=== PATIENT | female | born 1935 | race Caucasian/White ===

== ENCOUNTER → 2016-11-21 | Outpatient (REF) | payer MEDICARE, OTHER ==
[2016-11-21 08:10] LABS: MEAN CORPUSCULAR HEMOGLOBIN 31.8 pg (27.0-33.0); MEAN CORPUSCULAR HGB CONC 33.7 g/dl (32.0-36.5); MEAN CORPUSCULAR VOLUME 94.1 fl (80.0-96.0); RED CELL DISTRIBUTION WIDTH 12.4 % (11.5-14.5); WHITE BLOOD COUNT 4.6 K/mm3 (4.0-10.0)
[2016-11-21 08:33] LABS: ANION GAP 7 MEQ/L (8-16); BLOOD UREA NITROGEN 14 MG/DL (7-18); CALCIUM LEVEL 8.9 MG/DL (8.8-10.2); CARBON DIOXIDE LEVEL 30 MEQ/L (21-32); CHLORIDE LEVEL 105 MEQ/L (98-107); CREATININE FOR GFR 0.65 MG/DL (0.55-1.02); GLOMERULAR FILTRATION RATE > 60.0 (>32); GLUCOSE, FASTING 96 MG/DL (83-110); POTASSIUM SERUM 4.3 MEQ/L (3.5-5.1); SODIUM LEVEL 142 MEQ/L (136-145)
--- NOTE | 2016-11-21 13:12 | ECGEPIP ---
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
== END | disposition home or self-care (01) ==
LOC: SKLAB6 13:00
PROVIDERS: ATTEND Internal Medicine
DX: I50.9 Heart failure, unspecified (principal); R60.9 Edema, unspecified

== ENCOUNTER → 2016-11-27 | Outpatient (REF) | payer MEDICARE, OTHER ==
[2016-11-27 09:19] LABS: GLOMERULAR FILTRATION RATE 56.5 (>32); POTASSIUM SERUM 3.1 MEQ/L (3.5-5.1)
== END ==
LOC: SKLAB6 07:00
PROVIDERS: ATTEND Internal Medicine
DX: E87.6 Hypokalemia (principal)

== ENCOUNTER → 2016-12-01 | Outpatient (REF) | payer MEDICARE, OTHER ==
[2016-12-01 09:03] LABS: ANION GAP 7 MEQ/L (8-16); BLOOD UREA NITROGEN 22 MG/DL (7-18); CALCIUM LEVEL 8.9 MG/DL (8.8-10.2); CARBON DIOXIDE LEVEL 33 MEQ/L (21-32); CHLORIDE LEVEL 100 MEQ/L (98-107); CREATININE FOR GFR 0.88 MG/DL (0.55-1.02); GLOMERULAR FILTRATION RATE > 60.0 (>32); GLUCOSE, FASTING 88 MG/DL (83-110); POTASSIUM SERUM 3.9 MEQ/L (3.5-5.1); SODIUM LEVEL 140 MEQ/L (136-145)
== END ==
LOC: SKLAB6 07:00
PROVIDERS: ATTEND Internal Medicine
DX: I50.9 Heart failure, unspecified (principal); E87.6 Hypokalemia

== ENCOUNTER → 2016-12-04 | Outpatient (REF) | payer MEDICARE, OTHER ==
[2016-12-04 08:34] LABS: ANION GAP 9 MEQ/L (8-16); BLOOD UREA NITROGEN 20 MG/DL (7-18); CALCIUM LEVEL 9.3 MG/DL (8.8-10.2); CARBON DIOXIDE LEVEL 31 MEQ/L (21-32); CHLORIDE LEVEL 100 MEQ/L (98-107); CREATININE FOR GFR 0.88 MG/DL (0.55-1.02); GLOMERULAR FILTRATION RATE > 60.0 (>32); GLUCOSE, FASTING 94 MG/DL (83-110); POTASSIUM SERUM 4.3 MEQ/L (3.5-5.1); SODIUM LEVEL 140 MEQ/L (136-145)
== END ==
LOC: SKLAB6 07:00
PROVIDERS: ATTEND Internal Medicine
DX: R79.89 Other specified abnormal findings of blood chemistry (principal)

== ENCOUNTER → 2016-12-11 | Outpatient (REF) | payer MEDICARE, OTHER ==
[2016-12-11 09:22] LABS: ANION GAP 6 MEQ/L (8-16); BLOOD UREA NITROGEN 15 MG/DL (7-18); CALCIUM LEVEL 8.9 MG/DL (8.8-10.2); CARBON DIOXIDE LEVEL 33 MEQ/L (21-32); CHLORIDE LEVEL 102 MEQ/L (98-107); CREATININE FOR GFR 0.89 MG/DL (0.55-1.02); GLOMERULAR FILTRATION RATE > 60.0 (>32); GLUCOSE, FASTING 97 MG/DL (83-110); POTASSIUM SERUM 3.9 MEQ/L (3.5-5.1); SODIUM LEVEL 141 MEQ/L (136-145)
== END ==
LOC: SKLAB6 07:00
PROVIDERS: ATTEND Internal Medicine
DX: Z79.899 Other long term (current) drug therapy (principal)

== ENCOUNTER → 2016-12-18 | Outpatient (REF) | payer MEDICARE, OTHER ==
[2016-12-18 09:59] LABS: ANION GAP 8 MEQ/L (8-16); BLOOD UREA NITROGEN 17 MG/DL (7-18); CALCIUM LEVEL 8.7 MG/DL (8.8-10.2); CARBON DIOXIDE LEVEL 33 MEQ/L (21-32); CHLORIDE LEVEL 101 MEQ/L (98-107); CREATININE FOR GFR 0.91 MG/DL (0.55-1.02); GLOMERULAR FILTRATION RATE > 60.0 (>32); GLUCOSE, FASTING 91 MG/DL (83-110); POTASSIUM SERUM 3.1 MEQ/L (3.5-5.1); SODIUM LEVEL 142 MEQ/L (136-145)
== END ==
LOC: SKLAB6 07:00
PROVIDERS: ATTEND Internal Medicine
DX: E83.51 Hypocalcemia (principal)

== ENCOUNTER → 2016-12-25 | Outpatient (REF) | payer MEDICARE, OTHER ==
[2016-12-25 10:11] LABS: CALCIUM LEVEL 8.9 MG/DL (8.8-10.2); CREATININE FOR GFR 0.99 MG/DL (0.55-1.02); GLOMERULAR FILTRATION RATE 57.2 (>32); POTASSIUM SERUM 3.4 MEQ/L (3.5-5.1)
== END ==
LOC: SKLAB6 07:00
PROVIDERS: ATTEND Internal Medicine
DX: Z79.899 Other long term (current) drug therapy (principal)

== ENCOUNTER → 2017-01-01 | Outpatient (REF) | payer MEDICARE, OTHER ==
[2017-01-01 10:11] LABS: ANION GAP 8 MEQ/L (8-16); BLOOD UREA NITROGEN 19 MG/DL (7-18); CALCIUM LEVEL 8.7 MG/DL (8.8-10.2); CARBON DIOXIDE LEVEL 32 MEQ/L (21-32); CHLORIDE LEVEL 101 MEQ/L (98-107); CREATININE FOR GFR 0.91 MG/DL (0.55-1.02); GLOMERULAR FILTRATION RATE > 60.0 (>32); GLUCOSE, FASTING 100 MG/DL (83-110); POTASSIUM SERUM 3.8 MEQ/L (3.5-5.1); SODIUM LEVEL 141 MEQ/L (136-145)
== END ==
LOC: SKLAB6 07:00
PROVIDERS: ATTEND Internal Medicine
DX: D72.89 Other specified disorders of white blood cells (principal)

== ENCOUNTER → 2017-01-08 | Outpatient (REF) | payer MEDICARE, OTHER ==
[2017-01-08 09:07] LABS: ANION GAP 6 MEQ/L (8-16); BLOOD UREA NITROGEN 13 MG/DL (7-18); CALCIUM LEVEL 8.6 MG/DL (8.8-10.2); CARBON DIOXIDE LEVEL 32 MEQ/L (21-32); CHLORIDE LEVEL 104 MEQ/L (98-107); CREATININE FOR GFR 0.86 MG/DL (0.55-1.02); GLOMERULAR FILTRATION RATE > 60.0 (>32); GLUCOSE, FASTING 112 MG/DL (83-110); POTASSIUM SERUM 3.6 MEQ/L (3.5-5.1); SODIUM LEVEL 142 MEQ/L (136-145)
== END ==
LOC: SKLAB6 07:00
PROVIDERS: ATTEND Internal Medicine
DX: E83.51 Hypocalcemia (principal)

== ENCOUNTER → 2017-01-15 | Outpatient (REF) | payer MEDICARE, OTHER ==
[2017-01-15 08:42] LABS: ANION GAP 6 MEQ/L (8-16); BLOOD UREA NITROGEN 15 MG/DL (7-18); CALCIUM LEVEL 8.8 MG/DL (8.8-10.2); CARBON DIOXIDE LEVEL 33 MEQ/L (21-32); CHLORIDE LEVEL 101 MEQ/L (98-107); CREATININE FOR GFR 0.94 MG/DL (0.55-1.02); GLOMERULAR FILTRATION RATE > 60.0 (>32); GLUCOSE, FASTING 95 MG/DL (83-110); POTASSIUM SERUM 4.2 MEQ/L (3.5-5.1); SODIUM LEVEL 140 MEQ/L (136-145)
== END ==
LOC: SKLAB6 07:00
PROVIDERS: ATTEND Internal Medicine
DX: Z00.00 Encounter for general adult medical examination without abnormal findings (principal)

== ENCOUNTER → 2017-01-29 | Outpatient (REF) | payer MEDICARE, OTHER ==
[2017-01-29 09:23] LABS: ANION GAP 8 MEQ/L (8-16); BLOOD UREA NITROGEN 16 MG/DL (7-18); CALCIUM LEVEL 8.9 MG/DL (8.8-10.2); CARBON DIOXIDE LEVEL 33 MEQ/L (21-32); CHLORIDE LEVEL 100 MEQ/L (98-107); CREATININE FOR GFR 0.82 MG/DL (0.55-1.02); GLOMERULAR FILTRATION RATE > 60.0 (>32); GLUCOSE, FASTING 99 MG/DL (83-110); POTASSIUM SERUM 3.7 MEQ/L (3.5-5.1); SODIUM LEVEL 141 MEQ/L (136-145)
== END ==
LOC: SKLAB6 07:00
PROVIDERS: ATTEND Internal Medicine
DX: I50.9 Heart failure, unspecified (principal)

== ENCOUNTER → 2017-02-05 | Outpatient (REF) | payer MEDICARE, OTHER ==
[2017-02-05 08:54] LABS: ANION GAP 9 MEQ/L (8-16); BLOOD UREA NITROGEN 16 MG/DL (7-18); CALCIUM LEVEL 8.8 MG/DL (8.8-10.2); CARBON DIOXIDE LEVEL 30 MEQ/L (21-32); CHLORIDE LEVEL 102 MEQ/L (98-107); CREATININE FOR GFR 0.91 MG/DL (0.55-1.02); GLOMERULAR FILTRATION RATE > 60.0 (>32); GLUCOSE, FASTING 99 MG/DL (83-110); POTASSIUM SERUM 3.5 MEQ/L (3.5-5.1); SODIUM LEVEL 141 MEQ/L (136-145)
== END ==
LOC: SKLAB6 07:00
PROVIDERS: ATTEND Internal Medicine
DX: Z00.00 Encounter for general adult medical examination without abnormal findings (principal)

== ENCOUNTER → 2017-02-12 | Outpatient (REF) | payer MEDICARE, OTHER ==
[2017-02-12 09:12] LABS: ANION GAP 10 MEQ/L (8-16); BLOOD UREA NITROGEN 17 MG/DL (7-18); CALCIUM LEVEL 8.5 MG/DL (8.8-10.2); CARBON DIOXIDE LEVEL 30 MEQ/L (21-32); CHLORIDE LEVEL 101 MEQ/L (98-107); CREATININE FOR GFR 0.83 MG/DL (0.55-1.02); GLOMERULAR FILTRATION RATE > 60.0 (>32); GLUCOSE, FASTING 83 MG/DL (83-110); POTASSIUM SERUM 3.9 MEQ/L (3.5-5.1); SODIUM LEVEL 141 MEQ/L (136-145)
== END ==
LOC: SKLAB6 07:00
PROVIDERS: ATTEND Internal Medicine
DX: E83.52 Hypercalcemia (principal)

== ENCOUNTER → 2017-02-19 | Outpatient (REF) | payer MEDICARE, OTHER ==
[2017-02-19 09:42] LABS: ANION GAP 7 MEQ/L (8-16); BLOOD UREA NITROGEN 16 MG/DL (7-18); CALCIUM LEVEL 8.6 MG/DL (8.8-10.2); CARBON DIOXIDE LEVEL 32 MEQ/L (21-32); CHLORIDE LEVEL 102 MEQ/L (98-107); CREATININE FOR GFR 0.83 MG/DL (0.55-1.02); GLOMERULAR FILTRATION RATE > 60.0 (>32); GLUCOSE, FASTING 79 MG/DL (83-110); POTASSIUM SERUM 3.7 MEQ/L (3.5-5.1); SODIUM LEVEL 141 MEQ/L (136-145)
== END ==
LOC: SKLAB6 07:00
PROVIDERS: ATTEND Internal Medicine
DX: I50.9 Heart failure, unspecified (principal)

== ENCOUNTER → 2017-02-26 | Outpatient (REF) | payer MEDICARE, OTHER ==
[2017-02-26 09:32] LABS: ANION GAP 7 MEQ/L (8-16); BLOOD UREA NITROGEN 20 MG/DL (7-18); CALCIUM LEVEL 9.2 MG/DL (8.8-10.2); CARBON DIOXIDE LEVEL 32 MEQ/L (21-32); CHLORIDE LEVEL 101 MEQ/L (98-107); CREATININE FOR GFR 0.92 MG/DL (0.55-1.02); GLOMERULAR FILTRATION RATE > 60.0 (>32); GLUCOSE, FASTING 82 MG/DL (83-110); POTASSIUM SERUM 3.5 MEQ/L (3.5-5.1); SODIUM LEVEL 140 MEQ/L (136-145)
== END ==
LOC: SKLAB6 07:00
PROVIDERS: ATTEND Internal Medicine
DX: Z00.00 Encounter for general adult medical examination without abnormal findings (principal)

== ENCOUNTER → 2017-03-19 | Outpatient (REF) | payer MEDICARE, OTHER ==
[2017-03-19 10:15] LABS: ANION GAP 9 MEQ/L (8-16); BLOOD UREA NITROGEN 16 MG/DL (7-18); CALCIUM LEVEL 8.5 MG/DL (8.8-10.2); CARBON DIOXIDE LEVEL 29 MEQ/L (21-32); CHLORIDE LEVEL 103 MEQ/L (98-107); CREATININE FOR GFR 0.85 MG/DL (0.55-1.02); GLOMERULAR FILTRATION RATE > 60.0 (>32); GLUCOSE, FASTING 105 MG/DL (83-110); POTASSIUM SERUM 3.6 MEQ/L (3.5-5.1); SODIUM LEVEL 141 MEQ/L (136-145)
== END ==
LOC: SKLAB6 08:00
PROVIDERS: ATTEND Internal Medicine
DX: Z00.00 Encounter for general adult medical examination without abnormal findings (principal)

== ENCOUNTER → 2017-04-23 | Outpatient (REF) | payer MEDICARE, OTHER, MEDICAID ==
[2017-04-23 11:08] LABS: ANION GAP 10 MEQ/L (8-16); BLOOD UREA NITROGEN 16 MG/DL (7-18); CALCIUM LEVEL 9.2 MG/DL (8.8-10.2); CARBON DIOXIDE LEVEL 27 MEQ/L (21-32); CHLORIDE LEVEL 102 MEQ/L (98-107); CREATININE FOR GFR 0.91 MG/DL (0.55-1.02); GLOMERULAR FILTRATION RATE > 60.0 (>32); GLUCOSE, FASTING 126 MG/DL (83-110); POTASSIUM SERUM 3.5 MEQ/L (3.5-5.1); SODIUM LEVEL 139 MEQ/L (136-145)
== END ==
LOC: SKLAB6 07:00
PROVIDERS: ATTEND Internal Medicine
DX: R73.01 Impaired fasting glucose (principal)

== ENCOUNTER → 2017-04-30 | Outpatient (REF) | payer MEDICARE, OTHER ==
[2017-04-30 09:02] LABS: ANION GAP 7 MEQ/L (8-16); BLOOD UREA NITROGEN 14 MG/DL (7-18); CALCIUM LEVEL 9.4 MG/DL (8.8-10.2); CARBON DIOXIDE LEVEL 31 MEQ/L (21-32); CHLORIDE LEVEL 101 MEQ/L (98-107); CREATININE FOR GFR 0.81 MG/DL (0.55-1.02); GLOMERULAR FILTRATION RATE > 60.0 (>32); GLUCOSE, FASTING 93 MG/DL (83-110); POTASSIUM SERUM 4.1 MEQ/L (3.5-5.1); SODIUM LEVEL 139 MEQ/L (136-145)
== END ==
LOC: SKLAB8 07:00
PROVIDERS: ATTEND Internal Medicine
DX: Z00.00 Encounter for general adult medical examination without abnormal findings (principal)

== ENCOUNTER → 2017-05-28 | Outpatient (REF) | payer MEDICARE, OTHER ==
[2017-05-28 09:29] LABS: ANION GAP 8 MEQ/L (8-16); BLOOD UREA NITROGEN 16 MG/DL (7-18); CALCIUM LEVEL 8.7 MG/DL (8.8-10.2); CARBON DIOXIDE LEVEL 31 MEQ/L (21-32); CHLORIDE LEVEL 105 MEQ/L (98-107); CREATININE FOR GFR 0.73 MG/DL (0.55-1.02); GLOMERULAR FILTRATION RATE > 60.0 (>32); GLUCOSE, FASTING 84 MG/DL (83-110); POTASSIUM SERUM 4.3 MEQ/L (3.5-5.1); SODIUM LEVEL 144 MEQ/L (136-145)
== END ==
LOC: SKLAB8 07:00
PROVIDERS: ATTEND Internal Medicine
DX: I50.9 Heart failure, unspecified (principal)

== ENCOUNTER → 2017-06-25 | Outpatient (REF) | payer MEDICARE, OTHER ==
[2017-06-25 10:13] LABS: CALCIUM LEVEL 8.6 MG/DL (8.8-10.2); GLOMERULAR FILTRATION RATE 56.5 (>32); POTASSIUM SERUM 3.6 MEQ/L (3.5-5.1)
== END ==
LOC: SKLAB2 09:15
PROVIDERS: ATTEND Internal Medicine
DX: I50.9 Heart failure, unspecified (principal)

== ENCOUNTER → 2017-07-20 | Outpatient (REF) | payer MEDICARE, OTHER ==
[2017-07-20 09:43] LABS: ANION GAP 8 MEQ/L (8-16); BLOOD UREA NITROGEN 13 MG/DL (7-18); CALCIUM LEVEL 8.7 MG/DL (8.8-10.2); CARBON DIOXIDE LEVEL 28 MEQ/L (21-32); CHLORIDE LEVEL 103 MEQ/L (98-107); CREATININE FOR GFR 0.88 MG/DL (0.55-1.02); GLOMERULAR FILTRATION RATE > 60.0 (>32); GLUCOSE, FASTING 137 MG/DL (83-110); POTASSIUM SERUM 4.1 MEQ/L (3.5-5.1); SODIUM LEVEL 139 MEQ/L (136-145)
== END ==
LOC: SKLAB2 07:30
PROVIDERS: ATTEND Internal Medicine
DX: I50.9 Heart failure, unspecified (principal)

== ENCOUNTER → 2017-08-24 | Outpatient (REF) | payer MEDICARE, OTHER ==
[2017-08-24 10:14] LABS: ANION GAP 7 MEQ/L (8-16); BLOOD UREA NITROGEN 18 MG/DL (7-18); CALCIUM LEVEL 9.5 MG/DL (8.8-10.2); CARBON DIOXIDE LEVEL 32 MEQ/L (21-32); CHLORIDE LEVEL 103 MEQ/L (98-107); CREATININE FOR GFR 0.93 MG/DL (0.55-1.02); GLOMERULAR FILTRATION RATE > 60.0 (>32); GLUCOSE, FASTING 94 MG/DL (83-110); POTASSIUM SERUM 3.6 MEQ/L (3.5-5.1); SODIUM LEVEL 142 MEQ/L (136-145)
== END ==
LOC: SKLAB2 07:30
PROVIDERS: ATTEND Internal Medicine
DX: I50.9 Heart failure, unspecified (principal)

== ENCOUNTER → 2017-11-20 | Outpatient (REF) | payer MEDICARE, OTHER ==
[2017-11-20 11:40] LABS: HEMATOCRIT 35.9 % (36.0-47.0); HEMOGLOBIN 12.2 g/dl (12.0-16.0); MEAN CORPUSCULAR HEMOGLOBIN 31.6 pg (27.0-33.0); PLATELET COUNT, AUTOMATED 214 10^3/uL (150-450); RED BLOOD COUNT 3.86 10^6/uL (4.00-5.40); RED CELL DISTRIBUTION WIDTH 12.5 % (11.5-14.5); WHITE BLOOD COUNT 5.2 10^3/uL (4.0-10.0)
[2017-11-20 12:04] LABS: ANION GAP 6 MEQ/L (8-16); BLOOD UREA NITROGEN 17 MG/DL (7-18); CALCIUM LEVEL 8.6 MG/DL (8.8-10.2); CARBON DIOXIDE LEVEL 34 MEQ/L (21-32); CHLORIDE LEVEL 99 MEQ/L (98-107); CREATININE FOR GFR 0.81 MG/DL (0.55-1.30); GLOMERULAR FILTRATION RATE > 60.0 (>32); GLUCOSE, FASTING 111 MG/DL (70-100); NT-PRO BNP 434 PG/ML (<450); POTASSIUM SERUM 3.7 MEQ/L (3.5-5.1); SODIUM LEVEL 139 MEQ/L (136-145)
== END ==
LOC: SKLAB2 10:32
DX: I50.9 Heart failure, unspecified (principal); L03.90 Cellulitis, unspecified
CPT/HCPCS: 80048

== ENCOUNTER → 2017-11-20 | Outpatient (CLI) | payer MEDICARE, OTHER | LOC: M RAD 12:43 | DX: M79.604 Pain in right leg (principal); R60.0 Localized edema; I50.9 Heart failure, unspecified; L03.90 Cellulitis, unspecified | CPT/HCPCS: 71046 ==

== ENCOUNTER → 2017-11-23 | Outpatient (REF) | payer MEDICARE, OTHER ==
[2017-11-23 09:58] LABS: ANION GAP 9 MEQ/L (8-16); BLOOD UREA NITROGEN 18 MG/DL (7-18); CALCIUM LEVEL 9.1 MG/DL (8.8-10.2); CARBON DIOXIDE LEVEL 32 MEQ/L (21-32); CHLORIDE LEVEL 99 MEQ/L (98-107); CREATININE FOR GFR 0.96 MG/DL (0.55-1.30); GLOMERULAR FILTRATION RATE 59.1 (>32); GLUCOSE, FASTING 100 MG/DL (70-100); POTASSIUM SERUM 3.1 MEQ/L (3.5-5.1); SODIUM LEVEL 140 MEQ/L (136-145)
== END ==
LOC: SKLAB2 08:00
DX: I50.9 Heart failure, unspecified (principal)
CPT/HCPCS: 36415

== ENCOUNTER → 2017-11-26 | Outpatient (REF) | payer MEDICARE, OTHER ==
[2017-11-26 23:09] LABS: INFLUENZA A AMPLIFICATION NEGATIVE (NEGATIVE); INFLUENZA B AMPLIFICATION NEGATIVE (NEGATIVE); RSV AMPLIFICATION NEGATIVE (NEGATIVE)
== END ==
LOC: SKLAB2 20:49
DX: R05 Cough (principal); R50.9 Fever, unspecified
CPT/HCPCS: 87631

== ENCOUNTER → 2017-11-27 | Outpatient (REF) | payer MEDICARE, OTHER ==
[2017-11-27 07:45] LABS: ANION GAP 4 MEQ/L (8-16); BLOOD UREA NITROGEN 21 MG/DL (7-18); CALCIUM LEVEL 8.9 MG/DL (8.8-10.2); CARBON DIOXIDE LEVEL 34 MEQ/L (21-32); CHLORIDE LEVEL 101 MEQ/L (98-107); CREATININE FOR GFR 0.94 MG/DL (0.55-1.30); GLOMERULAR FILTRATION RATE > 60.0 (>32); GLUCOSE, FASTING 86 MG/DL (70-100); POTASSIUM SERUM 4.5 MEQ/L (3.5-5.1); SODIUM LEVEL 139 MEQ/L (136-145)
== END ==
LOC: SKLAB2 07:00
DX: I50.9 Heart failure, unspecified (principal)
CPT/HCPCS: 36415

== ENCOUNTER → 2017-12-25 | Outpatient (REF) | payer MEDICARE, OTHER ==
[2017-12-25 13:02] LABS: ANION GAP 6 MEQ/L (8-16); BLOOD UREA NITROGEN 20 MG/DL (7-18); CALCIUM LEVEL 8.7 MG/DL (8.8-10.2); CARBON DIOXIDE LEVEL 33 MEQ/L (21-32); CHLORIDE LEVEL 102 MEQ/L (98-107); CREATININE FOR GFR 0.85 MG/DL (0.55-1.30); GLOMERULAR FILTRATION RATE > 60.0 (>32); GLUCOSE, FASTING 88 MG/DL (70-100); NT-PRO BNP 298 PG/ML (<450); POTASSIUM SERUM 4.1 MEQ/L (3.5-5.1); SODIUM LEVEL 141 MEQ/L (136-145)
== END ==
LOC: SKLAB2 11:37
DX: I50.9 Heart failure, unspecified (principal); R60.0 Localized edema
CPT/HCPCS: 80048

== ENCOUNTER → 2018-01-01 | Outpatient (REF) | payer MEDICARE, OTHER ==
[2018-01-01 09:14] LABS: ANION GAP 6 MEQ/L (8-16); BLOOD UREA NITROGEN 24 MG/DL (7-18); CALCIUM LEVEL 8.8 MG/DL (8.8-10.2); CARBON DIOXIDE LEVEL 34 MEQ/L (21-32); CHLORIDE LEVEL 100 MEQ/L (98-107); GLOMERULAR FILTRATION RATE 56.4 (>32); GLUCOSE, FASTING 88 MG/DL (70-100); POTASSIUM SERUM 4.1 MEQ/L (3.5-5.1); SODIUM LEVEL 140 MEQ/L (136-145)
== END ==
LOC: SKLAB2 09:27
DX: I50.9 Heart failure, unspecified (principal); R60.9 Edema, unspecified
CPT/HCPCS: 36415

== ENCOUNTER → 2018-02-15 | Outpatient (REF) | payer MEDICARE, OTHER ==
[2018-02-15 19:27] LABS: HEMATOCRIT 37.6 % (36.0-47.0); MEAN CORPUSCULAR HEMOGLOBIN 31.9 pg (27.0-33.0); MEAN CORPUSCULAR HGB CONC 34.6 g/dl (32.0-36.5); MEAN CORPUSCULAR VOLUME 92.4 fl (80.0-96.0); PLATELET COUNT, AUTOMATED 287 10^3/uL (150-450); RED BLOOD COUNT 4.07 10^6/uL (4.00-5.40); RED CELL DISTRIBUTION WIDTH 12.3 % (11.5-14.5); WHITE BLOOD COUNT 6.4 10^3/uL (4.0-10.0)
[2018-02-15 20:25] LABS: ERYTHROCYTE SEDIMENTATION RATE 64 mm/hr (0-30)
== END ==
LOC: SKLAB2 17:47
DX: L51.9 Erythema multiforme, unspecified (principal); M25.532 Pain in left wrist
CPT/HCPCS: 84550

== ENCOUNTER → 2018-02-22 | Outpatient (REF) | payer MEDICARE, OTHER ==
[2018-02-22 08:30] LABS: ANION GAP 5 MEQ/L (8-16); BLOOD UREA NITROGEN 24 MG/DL (7-18); CARBON DIOXIDE LEVEL 34 MEQ/L (21-32); CHLORIDE LEVEL 102 MEQ/L (98-107); CREATININE FOR GFR 0.95 MG/DL (0.55-1.30); GLOMERULAR FILTRATION RATE 59.8 (>32); GLUCOSE, FASTING 80 MG/DL (70-100); POTASSIUM SERUM 3.9 MEQ/L (3.5-5.1); SODIUM LEVEL 141 MEQ/L (136-145)
== END ==
LOC: SKLAB2 07:00
DX: I50.9 Heart failure, unspecified (principal)
CPT/HCPCS: 36415

== ENCOUNTER → 2018-05-24 | Outpatient (REF) | payer MEDICARE, OTHER ==
[2018-05-24 08:35] LABS: ANION GAP 7 MEQ/L (8-16); BLOOD UREA NITROGEN 25 MG/DL (7-18); CALCIUM LEVEL 8.8 MG/DL (8.8-10.2); CARBON DIOXIDE LEVEL 32 MEQ/L (21-32); CHLORIDE LEVEL 105 MEQ/L (98-107); CREATININE FOR GFR 0.97 MG/DL (0.55-1.30); GLOMERULAR FILTRATION RATE 58.4 (>32); GLUCOSE, FASTING 87 MG/DL (70-100); POTASSIUM SERUM 4.4 MEQ/L (3.5-5.1); SODIUM LEVEL 144 MEQ/L (136-145)
== END ==
LOC: SKLAB2 08:00
DX: I50.9 Heart failure, unspecified (principal)
CPT/HCPCS: 36415

== ENCOUNTER → 2018-08-23 | Outpatient (REF) | payer MEDICARE, OTHER ==
[2018-08-23 10:17] LABS: ANION GAP 10 MEQ/L (8-16); BLOOD UREA NITROGEN 22 MG/DL (7-18); CALCIUM LEVEL 8.8 MG/DL (8.8-10.2); CARBON DIOXIDE LEVEL 29 MEQ/L (21-32); CHLORIDE LEVEL 103 MEQ/L (98-107); GLOMERULAR FILTRATION RATE > 60.0 (>32); GLUCOSE, FASTING 104 MG/DL (70-100); SODIUM LEVEL 142 MEQ/L (136-145)
== END ==
LOC: SKLAB2 07:00
DX: I50.9 Heart failure, unspecified (principal)
CPT/HCPCS: 80048

== ENCOUNTER → 2018-11-22 | Outpatient (REF) | payer MEDICARE, OTHER ==
[2018-11-22 08:21] LABS: BLOOD UREA NITROGEN 22 MG/DL (7-18); CALCIUM LEVEL 8.8 MG/DL (8.8-10.2); CARBON DIOXIDE LEVEL 32 MEQ/L (21-32); CHLORIDE LEVEL 103 MEQ/L (98-107); CREATININE FOR GFR 0.91 MG/DL (0.55-1.30); GLOMERULAR FILTRATION RATE > 60.0 (>32); GLUCOSE, FASTING 91 MG/DL (70-100); POTASSIUM SERUM 4.3 MEQ/L (3.5-5.1); SODIUM LEVEL 140 MEQ/L (136-145)
== END ==
LOC: SKLAB2 07:00
PROVIDERS: ATTEND Internal Medicine
DX: I50.9 Heart failure, unspecified (principal)

== ENCOUNTER → 2019-02-21 | Outpatient (REF) | payer MEDICARE, OTHER ==
[2019-02-21 08:31] LABS: BLOOD UREA NITROGEN 17 MG/DL (7-18); CALCIUM LEVEL 8.4 MG/DL (8.8-10.2); CARBON DIOXIDE LEVEL 31 MEQ/L (21-32); CHLORIDE LEVEL 105 MEQ/L (98-107); CREATININE FOR GFR 0.91 MG/DL (0.55-1.30); GLOMERULAR FILTRATION RATE > 60.0 (>32); GLUCOSE, FASTING 83 MG/DL (70-100); POTASSIUM SERUM 4.5 MEQ/L (3.5-5.1); SODIUM LEVEL 141 MEQ/L (136-145); VALPROIC ACID (DEPAKOTE) 30.8 UG/ML (50.0-100.0)
== END ==
LOC: SKLAB2 07:00
PROVIDERS: ATTEND Internal Medicine
DX: I50.9 Heart failure, unspecified (principal)

== ENCOUNTER → 2019-05-23 | Outpatient (REF) | payer MEDICARE, OTHER ==
[2019-05-23 08:36] LABS: CALCIUM LEVEL 8.7 MG/DL (8.8-10.2); CREATININE FOR GFR 0.97 MG/DL (0.55-1.30); GLOMERULAR FILTRATION RATE 58.2 (>32); POTASSIUM SERUM 4.7 MEQ/L (3.5-5.1)
== END ==
LOC: SKLAB2 07:00
PROVIDERS: ATTEND Internal Medicine
DX: I50.9 Heart failure, unspecified (principal)

== ENCOUNTER → 2019-08-22 | Outpatient (REF) | payer MEDICARE, OTHER ==
[2019-08-22 09:03] LABS: CALCIUM LEVEL 9.3 MG/DL (8.8-10.2); CREATININE FOR GFR 0.97 MG/DL (0.55-1.30); GLOMERULAR FILTRATION RATE 58.1 (>32); POTASSIUM SERUM 4.8 MEQ/L (3.5-5.1)
== END ==
LOC: SKLAB2 07:00
PROVIDERS: ATTEND Internal Medicine
DX: I50.9 Heart failure, unspecified (principal)

== ENCOUNTER → 2019-11-13 | Outpatient (REF) ==
--- NOTE | 2019-11-13 12:08 | REP ---
Facial bone series, eight views: No orbital rim fractures are identified. No nasal bone fractures are identified. No mandible fracture is identified. The the patient is edentulous. The skull base and sella are unremarkable. Impression: No facial bone fracture is identified. If symptoms persist or worsen, consider facial bone CT. Electronically Signed by Stuart Gonzalez MD 11/13/2019 12:00 P
== END ==
LOC: M RAD 11:17
PROVIDERS: ATTEND Internal Medicine
DX: S09.93XA Unspecified injury of face, initial encounter (principal); X58.XXXA Exposure to other specified factors, initial encounter

== ENCOUNTER → 2019-11-21 | Outpatient (REF) | payer MEDICARE, OTHER ==
[2019-11-21 13:47] LABS: BLOOD UREA NITROGEN 16 MG/DL (7-18); CARBON DIOXIDE LEVEL 27 MEQ/L (21-32); CHLORIDE LEVEL 103 MEQ/L (98-107); CREATININE FOR GFR 0.89 MG/DL (0.55-1.30); GLOMERULAR FILTRATION RATE > 60.0 (>32); GLUCOSE, FASTING 85 MG/DL (70-100); POTASSIUM SERUM 4.6 MEQ/L (3.5-5.1); SODIUM LEVEL 139 MEQ/L (136-145)
== END ==
LOC: SKLAB2 12:32
PROVIDERS: ATTEND Internal Medicine
DX: I50.20 Unspecified systolic (congestive) heart failure (principal)

== ENCOUNTER → 2019-12-22 | Outpatient (REF) | payer MEDICARE, OTHER | LOC: SKLAB2 14:57 | PROVIDERS: ATTEND Internal Medicine | DX: J06.9 Acute upper respiratory infection, unspecified (principal) ==

== ENCOUNTER → 2019-12-29 | Outpatient (REF) | payer MEDICARE, OTHER | LOC: SKLAB2 20:43 | PROVIDERS: ATTEND Internal Medicine | DX: R50.9 Fever, unspecified (principal) ==

== ENCOUNTER → 2019-12-29 | Outpatient (REF) | payer MEDICARE, OTHER ==
[2019-12-29 09:48] LABS: HEMATOCRIT 34.4 % (36.0-47.0); HEMOGLOBIN 11.3 g/dl (12.0-15.5); MEAN CORPUSCULAR HEMOGLOBIN 32.5 pg (27.0-33.0); MEAN CORPUSCULAR HGB CONC 32.8 g/dl (32.0-36.5); MEAN CORPUSCULAR VOLUME 98.9 fl (80.0-96.0); PLATELET COUNT, AUTOMATED 285 10^3/uL (150-450); RED BLOOD COUNT 3.48 10^6/uL (4.00-5.40); WHITE BLOOD COUNT 6.4 10^3/uL (4.0-10.0)
[2019-12-29 10:23] LABS: CALCIUM LEVEL 9.3 MG/DL (8.8-10.2); CREATININE FOR GFR 1.02 MG/DL (0.55-1.30); GLOMERULAR FILTRATION RATE 54.8 (>32); POTASSIUM SERUM 4.1 MEQ/L (3.5-5.1)
== END ==
LOC: SKLAB2 08:50
PROVIDERS: ATTEND Nurse Practitioner Family
DX: J06.9 Acute upper respiratory infection, unspecified (principal); R50.9 Fever, unspecified
CPT/HCPCS: 36415; 80048; 85027; 87486; 87581; 87633; 87798; U0002

== ENCOUNTER → 2020-02-21 | Outpatient (REF) | LOC: SKLAB2 07:00 | PROVIDERS: ATTEND Internal Medicine | DX: Z03.818 Encounter for observation for suspected exposure to other biological agents ruled out (principal) ==

== ENCOUNTER → 2020-02-21 | Outpatient (REF) | payer MEDICARE, OTHER ==
[2020-02-21 09:24] LABS: BLOOD UREA NITROGEN 20 MG/DL (7-18); CALCIUM LEVEL 8.8 MG/DL (8.8-10.2); CARBON DIOXIDE LEVEL 31 MEQ/L (21-32); CHLORIDE LEVEL 104 MEQ/L (98-107); CREATININE FOR GFR 0.82 MG/DL (0.55-1.30); GLOMERULAR FILTRATION RATE > 60.0 (>32); GLUCOSE, FASTING 78 MG/DL (70-100); POTASSIUM SERUM 4.4 MEQ/L (3.5-5.1); SODIUM LEVEL 142 MEQ/L (136-145)
== END ==
LOC: SKLAB2 07:00
PROVIDERS: ATTEND Internal Medicine
DX: I50.9 Heart failure, unspecified (principal)

== ENCOUNTER → 2020-05-22 | Outpatient (REF) | payer MEDICARE, OTHER ==
[~2020-05-22] MED LIST: ACET1TAB55 PO; ACET500T15 PO; APAP325T4 PO; ASPE16CR TOP; BACT800T5 PO; BIOTLIQ9 MT; DULC10SU2 PR; ENEMENE PR; MAGN400O50 PO; METO1TAB32 PO; METO25TA4 PO; MOUKOT60 MT; POTA20TA6 PO; QUET1TAB7 PO; SENO8.6T10 PO; TORS20TA2 PO; TUMS500C PO
[2020-08-18 07:54] LABS: BLOOD UREA NITROGEN 18 MG/DL (7-18); CALCIUM LEVEL 8.7 MG/DL (8.8-10.2); CARBON DIOXIDE LEVEL 27 MEQ/L (21-32); CHLORIDE LEVEL 105 MEQ/L (98-107); CREATININE FOR GFR 0.87 MG/DL (0.55-1.30); GLOMERULAR FILTRATION RATE > 60.0 (>32); GLUCOSE, FASTING 82 MG/DL (70-100); SODIUM LEVEL 141 MEQ/L (136-145)
== END ==
LOC: SKLAB2 11:36
DX: I50.9 Heart failure, unspecified (principal)

== ENCOUNTER 2020-08-03 07:10 | Inpatient (IN) | payer MEDICARE, OTHER ==
[~2020-08-03] VITALS: Ht 162.6 cm; Wt 63.0 kg
[2020-08-03 08:05] LABS: BASO % 0.2 % (0.0-1.0); LYMPH # 0.7 10^3/uL (1.5-5.0); LYMPH % 14.2 % (24.0-44.0); MEAN CORPUSCULAR HGB CONC 33.3 g/dl (32.0-36.5); MONO # 1.4 10^3/uL (0.0-0.8); MONO % 27.1 % (0.0-5.0); NEUTROPHILS % 57.7 % (36.0-66.0); PLATELET COUNT, AUTOMATED 187 10^3/uL (150-450); RED BLOOD COUNT 3.55 10^6/uL (4.00-5.40); WHITE BLOOD COUNT 5.2 10^3/uL (4.0-10.0)
[2020-08-03] MEDS ORDERED: BIOTLIQ9 MT (08:07)
[2020-08-03] MEDS ORDERED: METO1TAB32 PO (08:07)
--- NOTE | 2020-08-03 08:31 | REPVR ---
PROCEDURE INFORMATION: Exam: XR Chest, 1 View Exam date and time: 08/03/2020 8:00 AM Age: 85 years old Clinical indication: Fever TECHNIQUE: Imaging protocol: XR of the chest Views: Frontal portable sitting upright view of the chest. COMPARISON: GA Chest, 2 view PA, Lat 11/20/2017 1:13 PM FINDINGS: Tubes, catheters and devices: EKG leads are present overlying the chest. Lungs: Moderate pulmonary hypoexpansion. The patient's chin obscures a portion of the right lung apex. Mild left basilar pulmonary subsegmental atelectasis. The lungs are otherwise peripherally clear bilaterally. The pulmonary vasculature is normal. Pleural space: No pleural effusion. No pneumothorax. Heart/Mediastinum: The heart is normal in size and contour. Mediastinum: Stable. Vasculature: Mild aortic arch atherosclerotic calcification without ectasia. Bones/joints: Stable. IMPRESSION: 1. Moderate pulmonary hypoexpansion. 2. Mild left basilar pulmonary subsegmental atelectasis. Electronically signed by: Christiano Evans On 08/03/2020 08:31:12 AM
[2020-08-03] MEDS ORDERED: METO25TA4 PO (08:33)
[2020-08-03] MEDS ORDERED: MOUKOT60 MT (08:33)
[2020-08-03] MEDS ORDERED: POTA20TA6 PO (08:33)
[2020-08-03] MEDS ORDERED: ENEMENE PR (08:33)
[2020-08-03] MEDS ORDERED: APAP325T4 PO (08:33)
[2020-08-03] MEDS ORDERED: ACET500T15 PO (08:33)
[2020-08-03] MEDS ORDERED: TORS20TA2 PO (08:33)
[2020-08-03] MEDS ORDERED: DULC10SU2 PR (08:33)
[2020-08-03] MEDS ORDERED: MAGN400O50 PO (08:33)
[2020-08-03] MEDS ORDERED: ASPE16CR TOP (08:33)
[2020-08-03] MEDS ORDERED: SENO8.6T10 PO (08:33)
[2020-08-03] MEDS ORDERED: TUMS500C PO (08:33)
[2020-08-03 08:43] LABS: ALBUMIN 3.1 GM/DL (3.2-5.2); BILIRUBIN,DIRECT 0.1 MG/DL (0.0-0.2); BILIRUBIN,TOTAL 0.4 MG/DL (0.2-1.0); CK-MB VALUE MASS 2.3 NG/ML (<3.6); MB/CK RELATIVE INDEX 0.13 (< OR =4); TOTAL PROTEIN 6.9 GM/DL (6.4-8.2); TROPONIN I 0.99 NG/ML (< 0.10)
[2020-08-03] MEDS ORDERED: HALOPERIDOL 5MG/ML VIAL (J1630 PER 1) IV ONE ×2 (09:15→13:00)
[2020-08-03] MEDS ORDERED: cefTRIAXone SOD 1 GM in D5W MINI-BAG PLUS 50 ML IV ONE (10:00)
[2020-08-03] MEDS ORDERED: LORazepam 2 MG/ML VIAL IV STA ×2 (10:06→13:06)
[2020-08-03] MEDS ORDERED: ISOVUE-370 76% 100ML VIAL As Ordered ONE (10:35)
--- NOTE | 2020-08-03 11:01 | REP ---
INDICATION: fever, r/o pe COMPARISON: None. TECHNIQUE: Axial contrast enhanced images from the thoracic inlet to the upper abdomen using pulmonary embolus technique with multiplanar re-formations. 75 ml Isovue 370 intravenous contrast material administered without complication. This CT examination was performed using the following dose reduction techniques: Automated exposure control, adjustment of mA and/or kv according to the patient's size, and use of iterative reconstruction technique. FINDINGS: Evaluation is somewhat limited due to significant respiratory motion artifact. The pulmonary vasculature appears grossly normal and without obvious pulmonary embolus. Thoracic aorta demonstrates atherosclerotic changes without aneurysm or dissection. Heart and pericardium are normal. The lung trevino demonstrate mild bibasilar atelectasis. No focal consolidation. No effusion. No pneumothorax. Tracheobronchial tree is patent. No significant adenopathy. Moderate to large hiatal hernia identified at the gastroesophageal junction. Osseous structures demonstrate age-related changes without acute abnormality. IMPRESSION: 1. No evidence for pulmonary embolus. 2. Mild bibasilar atelectasis. 3. Moderate to large hiatal hernia. <Electronically signed by Stuart Lomas > 08/03/20 [id number]
--- NOTE | 2020-08-03 11:06 | REP ---
INDICATION: fever, abdominal pain. COMPARISON: 02/03/2011 TECHNIQUE: Axial contrast-enhanced images from the lung bases to the pubic symphysis using 100 cc Isovue 370 intravenous contrast material. [address] CT examination was performed using the following dose reduction techniques: Automated exposure control, adjustment of mA and/or kv according to the patient's size, and the use of iterative reconstruction technique. FINDINGS: Liver, spleen, pancreas, gallbladder, bilateral adrenal glands and left kidney are normal. Right kidney includes 2 cm mass along the anterior mid/lower pole margin requiring further investigation to exclude neoplasm. The enteric system demonstrates moderate hiatal hernia and moderate diffuse fecal stasis. No bowel obstruction or obvious acute inflammatory process noted. Diverticulosis appreciated without acute diverticulitis. Patient is noted to be status post hysterectomy. The bladder is distended and demonstrates some element of prolapse without acute surrounding inflammatory change. No ascites. No free air. No adenopathy. Incidental circumaortic left renal veins noted. Atherosclerotic changes to the aorta and vasculature identified without aneurysm or dissection. Musculoskeletal structures demonstrate age-related osteopenia and degenerative changes without acute osseous abnormality noted. IMPRESSION: 1. 2 cm right renal mass suspected. Consider follow-up ultrasound. 2. Chronic appearing changes as noted above. 3. No obvious further acute abdominopelvic pathology appreciated. No ascites, focal inflammatory stranding, free air, or adenopathy. <Electronically signed by Stuart Lomas > 08/03/20 [id number]
[2020-08-03 12:26] LABS: CK-MB VALUE MASS 3.3 NG/ML (<3.6); MB/CK RELATIVE INDEX 0.18 (< OR =4); TROPONIN I 0.66 NG/ML (< 0.10)
[2020-08-03] MEDS ORDERED: ACETAMINOPHEN *IV* 1,000 MG in IV 1 EA IV ONE (13:15)
[2020-08-03] MEDS ORDERED: BISACODYL 10 MG SUPP PR PRN (13:45)
[2020-08-03] MEDS ORDERED: CALCIUM CARBONATE 500 MG CHEW U/D PO PRN (13:45)
[2020-08-03] MEDS ORDERED: LIDOCAINE 5% (LIDODERM) PATCH TD ONE (14:00)
[2020-08-03] MEDS ORDERED: SODIUM CHLORIDE 0.9% 1000ML IV SCH (14:00)
--- NOTE | 2020-08-03 15:49 | HPEPDOC ---
General Date of Admission Aug 03, 2020 at 13:22 Date of Service: Aug 03, 2020 Attending Physician: ARISTEO RINALDI DO Chief Complaint The patient is a 85-year-old female admitted with a reason for visit of Metabolic Encephalopathy. Source: Patient, Family History of Present Illness Mrs. Marroquin is an 85 year old female with dementia, diastolic CHF, HTN, and GERD who come from [facility] for altered mental status and fever who is found to have sepsis secondary to UTI. Daughter was present in the room during evaluation. While at [facility], she has been independent and has been able to ambulate. Daughter does not know how the patient was yesterday, but today while at [facility], she had a fever and was holding her lower abdomen reporting pain. She was then sent to the ED. She was agitated, and in the ED, she required haloperidol 1mg x2 and Lorazepam 1mg x1 to obtain CT angio chest and CT abd/pelvis. She does not have a Donnelly catheter, but they straight cath for UA which demonstrated pyuria, nitrites, and bacteria. 1GM of ceftriaxone was given and admission was called. When I saw the patient, the daughter was in the room holding patients hand and trying to keep her in bed. Mrs. Marroquin was agitated and complaining of low back pain and leg pain. She did report dysuria. Her chest pain had resolved (and troponins trended downwards). Denied dyspnea. She was shivering and felt cold, but daughter reported that she chronically feels cold and likes to sit next to heater. Daughter was unsure what patient was like yesterday as she cannot see her often, but says this is not her baseline. Home Medications Scheduled Acetaminophen (Acetaminophen) 500 Mg Tablet, 500 MG PO TID, (Reported) Metoprolol Tartrate (Metoprolol Tartrate) 25 Mg Tablet, 25 MG PO BID, (Reported) Non-Formulary Medication ([place] Solution) 60 Ml [place], 2 SPRAYS MT QID, (Reported) Potassium Chloride (Potassium Chloride) 20 Meq Tab.er.prt, 20 MEQ PO BID, (Reported) Sennosides/Docusate Sodium (Senokot-S Tablet) 1 Each Tablet, 1 TAB PO BID, (Reported) Torsemide (Torsemide) 20 Mg Tablet, 20 MG PO DAILY, (Reported) Scheduled PRN Acetaminophen (Acetaminophen) 325 Mg Tablet, 650 MG PO Q4H PRN for PAIN / FEVER, (Reported) Bisacodyl (Dulcolax) 10 Mg Supp.rect, 10 MG TX DAILY PRN for CONSTIPATION, (Reported) Calcium Carbonate (Tums) 200 Mg Tab.chew, 500 MG PO Q6H PRN for HEARTBURN, (Reported) Lidocaine HCl (Aspercreme) 4% Cream..g., 1 APLCT TOP BID PRN for NECK PAIN, (Reported) Magnesium Hydroxide (Milk of Magnesia) 400 Mg/5 Ml Oral.susp, 2,400 MG PO DAILY PRN for CONSTIPATION, (Reported) Sodium Phosphate,[place]-Dibasic (Enema) 133 Ml Enema, 1 ERAN TX DAILY PRN for CONS TIPATION, (Reported) Allergies Coded Allergies: No Known Allergies (Verified , 04/17/03) Past Medical History Medical History 1. Alzheimer's disease/Dementia 2. Diastolic congestive heart failure 3. HTN 4. GERD 5. Gout 6. Depression/Anxiety Surgical History 1. Hysterectomy 2. Bladder and rectal suspension 3. Carpal tunnel surgery of right wrist Family History Unable to obtain as she was agitated Social History * Smoker: other (Unable to obtain as she was agitated) Alcohol: other (Unable to obtain as she was agitated) Drugs: other (Unable to obtain as she was agitated) A-FIB/CHADSVASC A-FIB History Current/History of A-Fib/PAF?: No Review of Systems Constitutional: Reports: Chills, Fever Eyes: Denies: Redness ENT: Denies: Sore Throat Pulmonary: Denies: Dyspnea Cardiovascular: Reports: Chest Pain (resolved) Gastrointestinal: Reports: Abdominal Pain (Lower abdominal pain) Genitourinary: Reports: Dysuria Endocrine: Reports: Cold Intolerance Musculoskeletal: Reports: Back Pain Neurological: Reports: Confusion Physical Examination General Exam: Positive: Severe Distress; Negative: Cooperative Eye Exam: Negative: Sclera icteric ENT Exam: Positive: Atraumatic Neck Exam: Positive: Supple Chest Exam: Positive: Clear to auscultation; Negative: Wheezing Heart Exam: Positive: Tachycardic, Regular Rhythm Abdomen Exam: Positive: Normal bowel sounds Extremity Exam: Negative: Edema Neuro Exam: Positive: Other (Moving all limbs) Psych Exam: Negative: Mental status NL Vital Signs Vital Signs Date Time Temp Pulse Resp B/P (MAP) Pulse Ox O2 Delivery O2 Flow Rate FiO2 08/03/20 14:37 108 20 91 Room Air 08/03/20 13:04 100.5 08/03/20 11:45 135/60 (85) Laboratory Data Labs 24H Laboratory Tests 2 08/03/20 07:47: Immature Granulocyte % (Auto) 0.8, Neutrophils (%) (Auto) 57.7, Lymphocytes (%) (Auto) 14.2L, Monocytes (%) (Auto) 27.1H, Eosinophils (%) (Auto) 0.0, Basophils (%) (Auto) 0.2, Neutrophils # (Auto) 3.0, Lymphocytes # (Auto) 0.7L, Monocytes # (Auto) 1.4H, Eosinophils # (Auto) 0.0, Basophils # (Auto) 0.0, Nucleated Red Blood Cells % (auto) 0.0, Lactic Acid Level 0.7, Total Bilirubin 0.4, Direct Bilirubin 0.1, Aspartate Amino Transf (AST/SGOT) 65H, Alanine Aminotransferase (ALT/SGPT) 24, Alkaline Phosphatase 81, Total Creatine Kinase 1836H, Creatine Kinase MB 2.3, Creatine Kinase MB Relative Index 0.13, Troponin I 0.99H, Total P rotein 6.9, Albumin 3.1L, Albumin/Globulin Ratio 0.8L, Lipase 83 08/03/20 07:57: POC Glucose (Misc Panel) 106H, POC Sodium (Misc Panel) 136, POC Potassium (Misc Panel) 3.6, POC Chloride (Misc Panel) 102, POC Total CO2 (Misc Panel) 22.0L, POC Blood Urea Nitrogen (Misc Panel 21, POC Ionized Calcium (Misc Panel) 4.5, POC Creatinine (Misc Panel) 0.8, POC Hematocrit (Misc Panel) 34.0L 08/03/20 08:46: Urine Color YELLOW, Urine Appearance CLOUDYH, Urine pH 7.0, Urine Specific Bone Gap 1.013, Urine Protein 1+H, Urine Glucose (UA) NEGATIVE, Urine Ketones NEGATIVE, Urine Blood 2+H, Urine Nitrite POSITIVEH, Urine Bilirubin NEGATIVE, Urine Urobilinogen 0.2, Urine Leukocyte Esterase 3+H, Urine WBC (Auto) TNTCH, Urine RBC (Auto) 41H, Urine Hyaline Casts (Auto) 0, Urine Bacteria (Auto) 3+H, Urine Squamous Epithelial Cells 0, Urine Mucus (Auto) SMALL, Urine Sperm (Auto) 08/03/20 11:32: Total Creatine Kinase 1838H, Creatine Kinase MB 3.3, Creatine Kinase MB Relative Index 0.18, Troponin I 0.66#H CBC/BMP Laboratory Tests 08/03/20 07:47 Microbiology Microbiology 08/03/20 Urine Culture, Received Pending 08/03/20 Blood Culture, Received Pending 08/03/20 Blood Culture, Received Pending Assessment/Plan Mr. Marroquin is an 85 year old female with alzheimer's disease, diastolic CHF, and hypertension here with metabolic encephalopathy secondary to sepsis from UTI. On admission, she had spike a temperature of 100.5 with tachycardia and tachypnea meeting 3/4 SIRS criteria. She also has 3/3 qSOFA criteria with AMS, tachycardia, and tachypnea. She demonstrates end organ damage with AMS, elevations of CPK and troponin (which down trended after 6 hours). She is here with sepsis 2/2 UTI. Her antihypertensives and diuretics will be held and she will be given 30ml/kg fluid bolus (2L NS). She will continue with antibiotics. Pending results from blood cultures and urine cultures Plan / VTE VTE Prophylaxis Ordered?: Yes Plan Plan 1. Sepsis -Meets 3/4 SIRS criteria and 3/3 qSOFA criteria -Source from UTI -Hold antihypertensives and diuretics -She was given 2L NS (30mL/kg) fluid bolus and Ceftriaxone -Continue with fluids and antibiotics 2. UTI -Straight Cath (no Donnelly) -UA demonstrates nitrites, pyuria, and bacteria -Reports dysuria -Empirically on ceftriaxone 3. Metabolic encephalopathy -Patient agitated -Daughter reports AMS -Secondary to Sepsis/UTI -Reorientate and treat underlying cause -Will need sitter as she is constantly trying to get up/Fall risk 4. Chronic pain -Continue Lidocaine patch and PRN Tylenol 5. Diastolic CHF -Not in exacerbation -Holding diuretics at this time 6. Hypertension -As she is septic, holding antihypertensives/diuretics 7. DVT ppx -SCD and TEDs ARISTEO RINALDI DO Aug 03, 2020 15:49
--- NOTE | 2020-08-03 16:43 | REP ---
INDICATION: Right renal mass COMPARISON: None TECHNIQUE: Real time bethea scale ultrasound examination using curved array transducer. FINDINGS: Right kidney measures 8.9 x 4.8 x 3.7 cm and demonstrates cortical thinning and increased central sinus fat. A 2.2 cm mid/upper pole mass lesion cannot definitively be excluded. No hydronephrosis, nephrolithiasis, or cystic lesion. Left kidney measures 9.9 x 4.8 x 4.5 cm and demonstrates cortical thinning and increased central sinus fat without hydronephrosis, nephrolithiasis, cystic or renal mass lesion. Bladder is unremarkable. IMPRESSION: 1. Evidence for chronic medical renal disease. 2. Limited examination cannot exclude right renal mass. Differential diagnosis may include lobar nephronia. Clinical correlation is recommended. Consider follow-up outpatient MRI of the abdomen for further investigation if necessary. <Electronically signed by Stuart Lomas > 08/03/20 [id number]
[2020-08-03] MEDS: NS 1,000 ML IV SCH (18:24)
[2020-08-03 20:00] VITALS: BP 170/82
--- NOTE | 2020-08-03 20:32 | ECGEPIP ---
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
[2020-08-03] MEDS: SENOKOT S TAB PO SCH (20:57)
[2020-08-04] VITALS (7 sets, daily range): BP systolic 94–140; BP diastolic 46–82
[2020-08-04] MEDS: ACETAMINOPHEN TAB 650MG DOSE (2X325MG) PO PRN ×4 (00:27→23:24)
[2020-08-04] MEDS ORDERED: METOPROLOL TART 25 MG TABLET PO ONE (01:45)
[2020-08-04] MEDS ORDERED: **NOTE PATIENT COMMENT** MISC XX ONE (02:00)
[2020-08-04] MEDS: NS 1,000 ML IV SCH (05:30)
[2020-08-04 05:53] LABS: HEMATOCRIT 35.2 % (36.0-47.0); HEMOGLOBIN 11.8 g/dl (12.0-15.5); MEAN CORPUSCULAR HEMOGLOBIN 31.7 pg (27.0-33.0); MEAN CORPUSCULAR HGB CONC 33.5 g/dl (32.0-36.5); MEAN CORPUSCULAR VOLUME 94.6 fl (80.0-96.0); PLATELET COUNT, AUTOMATED 171 10^3/uL (150-450); RED BLOOD COUNT 3.72 10^6/uL (4.00-5.40); WHITE BLOOD COUNT 5.4 10^3/uL (4.0-10.0)
[2020-08-04 06:09] LABS: ALBUMIN 2.8 GM/DL (3.2-5.2); ALT/SGPT 27 U/L (12-78); BILIRUBIN,TOTAL 0.4 MG/DL (0.2-1.0); BLOOD UREA NITROGEN 14 MG/DL (7-18); CALCIUM LEVEL 8.4 MG/DL (8.8-10.2); CARBON DIOXIDE LEVEL 22 MEQ/L (21-32); CHLORIDE LEVEL 113 MEQ/L (98-107); CREATININE FOR GFR 0.84 MG/DL (0.55-1.30); GLOMERULAR FILTRATION RATE > 60.0 (>32); GLUCOSE, FASTING 100 MG/DL (70-100); POTASSIUM SERUM 3.3 MEQ/L (3.5-5.1); SODIUM LEVEL 142 MEQ/L (136-145)
[2020-08-04] MEDS: SENOKOT S TAB PO SCH ×3 (09:00→21:50)
[2020-08-04] MEDS: cefTRIAXone SOD 1 GM in D5W MINI-BAG PLUS 50 ML IV SCH (10:14)
[2020-08-04] MEDS: POTASSIUM CHLORIDE 10 MEQ SR TABLET PO ONE ×2 (19:15→21:50)
--- NOTE | 2020-08-04 19:21 | IPNPDOC ---
Subjective Date Seen The patient was seen on 08/04/20. Subjective Chief Complaint/HPI Mrs. Marroquin is an 85 year old female with dementia, diastolic CHF, HTN, and GERD who come from [facility] for altered mental status and fever who is found to have sepsis secondary to UTI. Today, she felt cold and was shivering. She had pulled her IV line so another line was placed. New line was placed. May need to do intermittent fluid bolus to protect line. Otherwise, she did not want to answer my other ROS questions Constitutional: Reports: Chills Objective Physical Examination General Exam: Positive: Severe Distress; Negative: Cooperative Eye Exam: Negative: Sclera icteric ENT Exam: Positive: Atraumatic Neck Exam: Positive: Supple Chest Exam: Positive: Clear to auscultation; Negative: Wheezing Heart Exam: Positive: Tachycardic, Regular Rhythm Abdomen Exam: Positive: Normal bowel sounds Extremity Exam: Negative: Edema Neuro Exam: Positive: Other (Moving all limbs) Psych Exam: Negative: Mental status NL Assessment /Plan Assessment Mr. Marroquin is an 85 year old female with alzheimer's disease, diastolic CHF, and hypertension here with metabolic encephalopathy secondary to sepsis from UTI. On admission, she had spike a temperature of 100.5 with tachycardia and tachypnea meeting 3/4 SIRS criteria. She also has 3/3 qSOFA criteria with AMS, tachycardia, and tachypnea. She demonstrates end organ damage with AMS, elevations of CPK and troponin (which down trended after 6 hours). Her antihypertensives and diuretics will be held and she will be given 30ml/kg fluid bolus (2L NS). She will continue with antibiotics. Pending results from blood cultures and urine cultures Plan/VTE VTE Prophylaxis Ordered?: Yes Plan 1. Sepsis -Meets 3/4 SIRS criteria and 3/3 qSOFA criteria -Source from UTI -Hold antihypertensives and diuretics -She was given 2L NS (30mL/kg) fluid bolus and Ceftriaxone -To protect IV line, may need to do intermittent fluid bolus 2. UTI -UA from straight Cath (no Donnelly) -UA demonstrates nitrites, pyuria, and bacteria -Reports dysuria -Empirically on ceftriaxone 3. Metabolic encephalopathy -Patient agitated -Daughter reports AMS -Secondary to Sepsis/UTI -Reorientate and treat underlying cause -Will need sitter as she is constantly trying to get up/Fall risk 4. Chronic pain -Continue Lidocaine patch and PRN Tylenol 5. Diastolic CHF -Not in exacerbation -Holding diuretics at this time 6. Hypertension -As she is septic, holding antihypertensives/diuretics 7. DVT ppx -SCD and TEDs VS, I&O, 24H, Fishbone Vital Signs/I&O Vital Signs Date Time Temp Pulse Resp B/P (MAP) Pulse Ox O2 Delivery O2 Flow Rate FiO2 08/04/20 16:00 98.8 95 20 140/60 (86) 96 Room Air I&O- Last 24 Hours up to 6 AM 08/04/20 06:00 Intake Total 1010 ml Output Total 0 ml Balance 1010 ml Laboratory Data 24H LABS Laboratory Tests 2 08/04/20 05:36: Nucleated Red Blood Cells % (auto) 0.0, Anion Gap 7L, Glomerular Filtration Rate > 60.0, Calcium Level 8.4L, Total Bilirubin 0.4, Aspartate Amino Transf (AST/SGOT) 63H, Alanine Aminotransferase (ALT/SGPT) 27, Alkaline Phosphatase 74, Total Protein 7.0, Albumin 2.8L, Albumin/Globulin Ratio 0.7L CBC/BMP Laboratory Tests 08/04/20 05:36 Microbiology Microbiology 08/03/20 Urine Culture, Received Pending 08/03/20 Blood Culture - Preliminary, Resulted No growth after 24 hours . All specim... 08/03/20 Blood Culture - Preliminary, Resulted No growth after 24 hours . All specim... ARISTEO RINALDI DO Aug 04, 2020 19:21
[2020-08-05] VITALS: BP 125/65
[2020-08-05] MEDS: KCL 10MEQ/100ML SWI (KRUN) 10 MEQ in IV 1 EA IV SCH ×2 (01:29→02:49)
[2020-08-05 04:00] VITALS: BP 131/62
[2020-08-05] MEDS: ACETAMINOPHEN TAB 650MG DOSE (2X325MG) PO PRN ×5 (06:27→22:38)
[2020-08-05 08:00] VITALS: BP 124/60
[2020-08-05 08:23] LABS: HEMOGLOBIN 11.2 g/dl (12.0-15.5); MEAN CORPUSCULAR HEMOGLOBIN 31.7 pg (27.0-33.0); MEAN CORPUSCULAR HGB CONC 33.9 g/dl (32.0-36.5); MEAN CORPUSCULAR VOLUME 93.5 fl (80.0-96.0); PLATELET COUNT, AUTOMATED 175 10^3/uL (150-450); RED BLOOD COUNT 3.53 10^6/uL (4.00-5.40); WHITE BLOOD COUNT 4.6 10^3/uL (4.0-10.0)
[2020-08-05 08:48] LABS: BLOOD UREA NITROGEN 14 MG/DL (7-18); CALCIUM LEVEL 8.1 MG/DL (8.8-10.2); CARBON DIOXIDE LEVEL 22 MEQ/L (21-32); CHLORIDE LEVEL 109 MEQ/L (98-107); CREATININE FOR GFR 0.83 MG/DL (0.55-1.30); GLOMERULAR FILTRATION RATE > 60.0 (>32); GLUCOSE, FASTING 119 MG/DL (70-100); POTASSIUM SERUM 3.6 MEQ/L (3.5-5.1); SODIUM LEVEL 137 MEQ/L (136-145)
[2020-08-05] MEDS: cefTRIAXone SOD 1 GM in D5W MINI-BAG PLUS 50 ML IV SCH (10:21)
[2020-08-05] MEDS: SENOKOT S TAB PO SCH ×2 (10:21→20:31)
[2020-08-05 12:00] VITALS: BP 140/60
--- NOTE | 2020-08-05 15:36 | ECGEPIP ---
[facility] Test Date: 2020-08-04 Pat Name: PANDA BRAVO Department: Room: N6322-31 Gender: Female Director Physical Therapy: HT : 1935 Requested By: GRETA EDDY Order Number: [id number] Reading MD: Kt Mon Measurements Intervals [place] Rate: 123 P: 60 HI: 151 QRS: -20 QRSD: 86 T: 50 QT: 338 QTc: 484 Interpretive Statements SINUS TACHYCARDIA WITH VENTRICULAR PREMATURE COMPLEX x1 MINIMAL ST DEPRESSION ABNORMAL RHYTHM ECG Electronically Signed on 08-05-2020 15:36:20 EDT by Kt Mon
[2020-08-05 16:00] VITALS: BP 127/62
[2020-08-05] MEDS ORDERED: QUEtiapine FUMARATE 25 MG TAB PO SCH (16:45)
[2020-08-05] MEDS ORDERED: QUEtiapine FUMARATE 25 MG TAB PO ONE (17:00)
[2020-08-05] MEDS ORDERED: LIDOCAINE 5% (LIDODERM) PATCH TD ONE (17:30)
--- NOTE | 2020-08-05 19:27 | IPNPDOC ---
Subjective Date Seen The patient was seen on 08/05/20. Subjective Chief Complaint/HPI Mrs. Marroquin is an 85 year old female with dementia, diastolic CHF, HTN, and GERD who come from [facility] for altered mental status and fever who is found to have sepsis secondary to UTI. This morning, she was very pleasant and mentally stronger. She denied chest pain or current abdominal pain. She has back pain and leg pain, but did not want pain medication. Denies dysuria at this time. Late afternoon, she started to become more confused. Pain was still bothering her and she wanted to get up. Giving her lidocaine patch, Tylenol, and an extra dose of Seroquel. Constitutional: Denies: Fever Cardiovascular: Denies: Chest Pain Gastrointestinal: Denies: Abdominal Pain Genitourinary: Denies: Dysuria Musculoskeletal: Reports: Back Pain, Leg Pain Objective Physical Examination General Exam: Positive: Mild Distress Eye Exam: Negative: Sclera icteric ENT Exam: Positive: Atraumatic Neck Exam: Positive: Supple Chest Exam: Positive: Clear to auscultation; Negative: Wheezing Heart Exam: Positive: Tachycardic, Regular Rhythm Abdomen Exam: Positive: Normal bowel sounds Extremity Exam: Negative: Edema Neuro Exam: Positive: Other (Moving all limbs) Psych Exam: Negative: Mental status NL Assessment /Plan Assessment Mr. Marroquin is an 85 year old female with alzheimer's disease, diastolic CHF, and hypertension here with metabolic encephalopathy secondary to sepsis from UTI. On admission, she had spike a temperature of 100.5 with tachycardia and tachypnea meeting 3/4 SIRS criteria. She also has 3/3 qSOFA criteria with AMS, tachycardia, and tachypnea. She demonstrates end organ damage with AMS, elevations of CPK and troponin (which down trended after 6 hours). Today, she has not had chills. She was pleasant in the morning, but started to have acute delirium secondary to hospital psychosis vs pain. Will treat with pain control and Seroquel. Otherwise, urine cultures grew E.coli resistant to ampicillin and intermediate to Unasyn. Can consider Cefdinir on discharge for a total treatment of 7 days of antibiotics. Antibiotics started on 08/03/2020 Plan/VTE VTE Prophylaxis Ordered?: Yes Plan 1. Gram negative sepsis -Meets 3/4 SIRS criteria and 3/3 qSOFA criteria -Source from UTI -Hold antihypertensives and diuretics -She was given 2L NS (30mL/kg) fluid bolus and Ceftriaxone -To protect IV line, may need to do intermittent fluid bolus 2. E.coli UTI -UA from straight Cath (no Donnelly) -UA demonstrates nitrites, pyuria, and bacteria -Reports dysuria -Empirically on ceftriaxone -Can consider transitioning to Cefdinir on discharge with a 7 day total of antibiotics. Antibiotics started on 08/03/2020 3. Metabolic encephalopathy -Patient agitated -Daughter reports AMS -Secondary to Sepsis/UTI -Reorientate and treat underlying cause -Will need sitter as she is constantly trying to get up/Fall risk 4. Chronic pain -PRN Tylenol -Lidocaine patch 5. Diastolic CHF -Not in exacerbation -Holding diuretics at this time 6. Hypertension -As she is septic, holding antihypertensives/diuretics 7. Delirium -May be secondary to pain vs hospital psychosis ("sun downing") -Pain control with lidocaine patch and Tylenol -Seroquel for better sleep tonight 8. DVT ppx -SCD and TEDs Dispo: May be able to return to [facility] tomorrow VS, I&O, 24H, [facility] Vital Signs/I&O Vital Signs Date Time Temp Pulse Resp B/P (MAP) Pulse Ox O2 Delivery O2 Flow Rate FiO2 08/05/20 16:00 98.1 110 22 127/62 (83) 95 Room Air I&O- Last 24 Hours up to 6 AM 08/05/20 06:00 Intake Total 1920 ml Output Total 900 ml Balance 1020 ml Laboratory Data 24H LABS Laboratory Tests 2 08/05/20 08:08: Nucleated Red Blood Cells % (auto) 0.0, Anion Gap 6L, Glomerular Filtration Rate > 60.0, Calcium Level 8.1L CBC/BMP Laboratory Tests 08/05/20 08:08 Microbiology Microbiology 08/03/20 Urine Culture - Final, Complete Escherichia Coli 08/03/20 Blood Culture - Preliminary, Resulted No Growth after 48 hours. All Specime... 08/03/20 Blood Culture - Preliminary, Resulted No Growth after 48 hours. All Specime... ARISTEO RINALDI DO Aug 05, 2020 19:27
[2020-08-05 20:00] VITALS: BP 127/58
[2020-08-06] VITALS: BP 114/65
[2020-08-06] MEDS: ACETAMINOPHEN TAB 650MG DOSE (2X325MG) PO PRN ×2 (03:20→10:56)
[2020-08-06] MEDS ORDERED: **NOTE PATIENT COMMENT** MISC XX ONE (05:00)
[2020-08-06 05:32] LABS: HEMATOCRIT 33.1 % (36.0-47.0); HEMOGLOBIN 10.9 g/dl (12.0-15.5); MEAN CORPUSCULAR HEMOGLOBIN 30.5 pg (27.0-33.0); MEAN CORPUSCULAR HGB CONC 32.9 g/dl (32.0-36.5); MEAN CORPUSCULAR VOLUME 92.7 fl (80.0-96.0); PLATELET COUNT, AUTOMATED 187 10^3/uL (150-450); RED BLOOD COUNT 3.57 10^6/uL (4.00-5.40); WHITE BLOOD COUNT 4.2 10^3/uL (4.0-10.0)
[2020-08-06 06:05] LABS: BLOOD UREA NITROGEN 15 MG/DL (7-18); CALCIUM LEVEL 8.5 MG/DL (8.8-10.2); CARBON DIOXIDE LEVEL 20 MEQ/L (21-32); CHLORIDE LEVEL 111 MEQ/L (98-107); CREATININE FOR GFR 0.78 MG/DL (0.55-1.30); GLOMERULAR FILTRATION RATE > 60.0 (>32); GLUCOSE, FASTING 91 MG/DL (70-100); POTASSIUM SERUM 3.8 MEQ/L (3.5-5.1); SODIUM LEVEL 141 MEQ/L (136-145)
[2020-08-06] MEDS ORDERED: SENNA 8.6 MG TAB (SENOKOT) PO PRN (06:15)
[2020-08-06] MEDS ORDERED: QUEtiapine FUMARATE 12.5 MG HALF-TAB PO ONE (06:15)
[2020-08-06 08:00] VITALS: BP 144/66
[2020-08-06] MEDS: SENOKOT S TAB PO SCH (09:19)
[2020-08-06] MEDS ORDERED: QUET1TAB7 PO (10:03)
[2020-08-06] MEDS ORDERED: ACET1TAB55 PO (10:03)
[2020-08-06] MEDS ORDERED: BACT800T5 PO (10:03)
[2020-08-06] MEDS: cefTRIAXone SOD 1 GM in D5W MINI-BAG PLUS 50 ML IV SCH (10:56)
--- NOTE | 2020-08-06 22:41 | DS.PDOC ---
Discharge Summary General Date of Admission Aug 03, 2020 at 13:22 Date of Discharge Aug 06, 2020 Attending Physician: ARISTEO RINALDI DO Discharge Summary PROCEDURES PERFORMED DURING STAY: None ADMITTING DIAGNOSES: 1. Sepsis 2. UTI 3. Metabolic encephalopathy 4. Chronic pain 5. Diastolic CHF 6. Hypertension DISCHARGE DIAGNOSES: 1. Gram negative sepsis 2. E.coli UTI 3. Metabolic encephalopathy 4. Chronic pain 5. Diastolic CHF 6. Hypertension 7. Delirium COMPLICATIONS/CHIEF COMPLAINT: Metabolic Encephalopathy. HISTORY OF PRESENT ILLNESS: Mrs. Marroquin is an 85 year old female with dementia, diastolic CHF, HTN, and GERD who come from [facility] for altered mental status and fever who is found to have sepsis secondary to UTI. Daughter was present in the room during evaluation. While at [facility], she has been independent and has been able to ambulate. Daughter does not know how the patient was yesterday, but today while at [facility], she had a fever and was holding her lower abdomen reporting pain. She was then sent to the ED. She was agitated, and in the ED, she required haloperidol 1mg x2 and Lorazepam 1mg x1 to obtain CT angio chest and CT abd/pelvis. She does not have a Donnelly catheter, but they straight cath for UA which demonstrated pyuria, nitrites, and bacteria. 1GM of ceftr iaxone was given and admission was called. When I saw the patient, the daughter was in the room holding patients hand and trying to keep her in bed. Mrs. Marroquin was agitated and complaining of low back pain and leg pain. She did report dysuria. Her chest pain had resolved (and troponins trended downwards). Denied dyspnea. She was shivering and felt cold, but daughter reported that she chronically feels cold and likes to sit next to heater. Daughter was unsure what patient was like yesterday as she cannot see her often, but says this is not her baseline. HOSPITAL COURSE: The first day after admission, she continued to have chills. By the second day of admission, chills is resolved. She was sitting up in a chair, and initially was very pleasant. As the day progressed towards the late afternoon, she became more agitated. She had pain in her back and leg, but she did not want pain medication initially. On the day, gave her lidocaine patch and Tylenol for the pain. I also started her on Seroquel at nighttime, so that she could sleep at night and be awake in the daytime. Her urine culture grew Escherichia coli which was only resistant to ampicillin and intermediate to Unasyn. Started her on oral Bactrim DS for an additional 10 days for complicated UTI. Today she was discharged back to [facility]. DISCHARGE MEDICATIONS: Please see below. ALLERGIES: Please see below. PHYSICAL EXAMINATION ON DISCHARGE: VITAL SIGNS: Please see below. GENERAL: Elderly and frail, but in no apparent distress. HEENT: Head normocephalic/atraumatic, EOMI, sclera clear. NECK: Supple RESPIRATORY: Lungs clear to auscultation bilaterally, no rales, wheeze or rhonchi. CARDIOVASCULAR: Regular rate and rhythm. ABDOMEN: Soft, nontender, no guarding or rebound tenderness. Normal bowel sound s. MUSCLE SKELETAL: No pitting edema PSYCHOLOGICAL: Mood is variable LABORATORY DATA: Please see below. IMAGING: Chest x-ray 1. Moderate pulmonary hypoexpansion. 2. Mild left basilar pulmonary subsegmental atelectasis. CT angiogram of the chest 1. No evidence for pulmonary embolus. 2. Mild bibasilar atelectasis. 3. Moderate to large hiatal hernia. PROGNOSIS: Stable ACTIVITY: As tolerated. DIET: 2 g sodium DISCHARGE PLAN: [facility] DISPOSITION: [facility]. DISCHARGE INSTRUCTIONS: 1. Follow up with her provider within 5 days. DISCHARGE CONDITION: Stable. Total time spent on discharge planning, discharge summary, and medication reconc iliation: 35 minutes Vital Signs/I&Os Vital Signs Date Time Temp Pulse Resp B/P (MAP) Pulse Ox O2 Delivery O2 Flow Rate FiO2 08/06/20 08:00 97.6 92 20 144/66 (92) 99 Room Air I&O- Last 24 Hours up to 6 AM 08/06/20 06:00 Intake Total 120 ml Output Total 800 ml Balance -680 ml Laboratory Data Labs 24H Laboratory Tests 2 08/06/20 05:08: Nucleated Red Blood Cells % (auto) 0.0, Anion Gap 10, Glomerular Filtration Rate > 60.0, Calcium Level 8.5L 08/06/20 11:01: Coronavirus (COVID-19)(PCR) NEGATIVE CBC/BMP Laboratory Tests 08/06/20 05:08 Microbiology Microbiology 08/03/20 Urine Culture - Final, Complete Escherichia Coli 08/03/20 Blood Culture - Preliminary, Resulted No Growth after 72 hours. All specime... 08/03/20 Blood Culture - Preliminary, Resulted No Growth after 72 hours. All specime... Discharge Medications Scheduled Acetaminophen (Acetaminophen) 500 Mg Tablet, 500 MG PO TID, (Reported) Non-Formulary Medication (Mouthkote Solution) 60 Ml [place], 2 SPRAYS MT QID, (Reported) Quetiapine Fumarate (Quetiapine Fumarate) 25 Mg Tablet, 25 MG PO QHS Sennosides/Docusate Sodium (Senokot-S Tablet) 1 Each Tablet, 1 TAB PO BID, (Reported) Sulfamethoxazole/Trimethoprim (Bactrim Ds Tablet) 1 Each Tablet, 1 TAB PO BID Scheduled PRN Acetaminophen (Acetaminophen) 325 Mg Tablet, 650 MG PO Q6HP PRN for pain or fever Bisacodyl (Dulcolax) 10 Mg Supp.rect, 10 MG AK DAILY PRN for CONSTIPATION, (Reported) Calcium Carbonate (Tums) 200 Mg Tab.chew, 500 MG PO Q6H PRN for HEARTBURN, (Re ported) Lidocaine HCl (Aspercreme) 4% Cream..g., 1 APLCT TOP BID PRN for NECK PAIN, (Reported) Magnesium Hydroxide (Milk of Magnesia) 400 Mg/5 Ml Oral.susp, 2,400 MG PO DAILY PRN for CONSTIPATION, (Reported) Sodium Phosphate,Mercer-Dibasic (Enema) 133 Ml Enema, 1 ERAN AK DAILY PRN for CONSTIPATION, (Reported) Allergies Coded Allergies: No Known Allergies (Verified , 04/17/03) ARISTEO RINALDI DO Aug 06, 2020 22:41
== END 2020-08-06 12:35 | DRG 871 ==
LOC: EDBD 07:10 → M ED 07:10 → M ED INP 13:22 → ENRESERV 17:35 → M PCU 18:26
PROVIDERS: ADMIT Internal Medicine; ATTEND Internal Medicine
DX: A41.59 Other Gram-negative sepsis (principal); G93.41 Metabolic encephalopathy; N39.0 Urinary tract infection, site not specified; I50.32 Chronic diastolic (congestive) heart failure; I11.0 Hypertensive heart disease with heart failure; G30.9 Alzheimer's disease, unspecified; B96.29 Other Escherichia coli [E. coli] as the cause of diseases classified elsewhere; F02.80 Dementia in other diseases classified elsewhere, unspecified severity, without behavioral disturbance, psychotic disturbance, mood disturbance, and anxiety; K21.9 Gastro-esophageal reflux disease without esophagitis; Z79.899 Other long term (current) drug therapy; M10.9 Gout, unspecified; F41.9 Anxiety disorder, unspecified; F32.9 Major depressive disorder, single episode, unspecified; G89.29 Other chronic pain

== ENCOUNTER → 2020-08-08 | Outpatient (REF) | payer MEDICARE, OTHER ==
[2020-08-08 07:34] LABS: ALT/SGPT 34 U/L (12-78); BILIRUBIN,DIRECT < 0.1 MG/DL (0.0-0.2); BILIRUBIN,TOTAL 0.4 MG/DL (0.2-1.0); CPK CREATINE PHOSPHOKINASE 159 U/L (26-192); TOTAL PROTEIN 6.7 GM/DL (6.4-8.2)
== END ==
LOC: SKLAB2 03:41
PROVIDERS: ATTEND Internal Medicine
DX: I50.9 Heart failure, unspecified (principal)

== ENCOUNTER → 2020-08-08 | Outpatient (REF) | payer MEDICARE, OTHER | LOC: SKLAB2 12:19 | PROVIDERS: ATTEND Nurse Practitioner Family | DX: Z74.09 Other reduced mobility (principal) ==

== ENCOUNTER → 2020-08-09 | Outpatient (REF) | payer MEDICARE, OTHER ==
--- NOTE | 2020-08-09 14:09 | REP ---
INDICATION: PAIN / REFUSES HIP/PELVIS SERIES. COMPARISON: None. TECHNIQUE: Single AP portable view. FINDINGS: There is diffuse osteopenia. No fracture, subluxation, or bony destructive lesion is visible. IMPRESSION: Diffuse osteopenia. No fracture or other opaque foreign body. 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 <Electronically signed by Sixto Oswald > 08/09/20 [id number]
== END ==
LOC: SKLAB2 08:40
PROVIDERS: ATTEND Nurse Practitioner Family
DX: M85.88 Other specified disorders of bone density and structure, other site (principal); M16.11 Unilateral primary osteoarthritis, right hip; M25.551 Pain in right hip

== ENCOUNTER → 2020-08-21 | Outpatient (REF) | payer MEDICARE, OTHER ==
[2020-08-21 10:09] LABS: ALBUMIN 3.1 GM/DL (3.2-5.2); ALT/SGPT 19 U/L (12-78); BILIRUBIN,DIRECT < 0.1 MG/DL (0.0-0.2); BILIRUBIN,TOTAL 0.3 MG/DL (0.2-1.0); BLOOD UREA NITROGEN 16 MG/DL (7-18); CALCIUM LEVEL 9.1 MG/DL (8.8-10.2); CARBON DIOXIDE LEVEL 28 MEQ/L (21-32); CHLORIDE LEVEL 106 MEQ/L (98-107); CPK CREATINE PHOSPHOKINASE 49 U/L (26-192); CREATININE FOR GFR 0.77 MG/DL (0.55-1.30); GLOMERULAR FILTRATION RATE > 60.0 (>32); GLUCOSE, FASTING 114 MG/DL (70-100); POTASSIUM SERUM 4.3 MEQ/L (3.5-5.1); SODIUM LEVEL 140 MEQ/L (136-145); TOTAL PROTEIN 6.8 GM/DL (6.4-8.2)
== END ==
LOC: SKLAB2 08:30
DX: I50.9 Heart failure, unspecified (principal)

== ENCOUNTER → 2020-08-23 | Outpatient (REF) | payer MEDICARE, OTHER | LOC: SKLAB2 12:36 | DX: Z53.9 Procedure and treatment not carried out, unspecified reason (principal) ==

== ENCOUNTER → 2020-08-27 | Outpatient (REF) | payer MEDICARE, OTHER ==
[2020-08-27 13:34] LABS: BASO % 0.7 % (0.0-1.0); EOS # 0.1 10^3/uL (0.0-0.5); EOS % 2.7 % (0.0-3.0); HEMATOCRIT 32.6 % (36.0-47.0); LYMPH # 1.1 10^3/uL (1.5-5.0); LYMPH % 26.1 % (24.0-44.0); MEAN CORPUSCULAR HEMOGLOBIN 30.3 pg (27.0-33.0); MEAN CORPUSCULAR HGB CONC 30.7 g/dl (32.0-36.5); MEAN CORPUSCULAR VOLUME 98.8 fl (80.0-96.0); MONO % 24.1 % (0.0-5.0); NEUTROPHILS # 1.9 10^3/uL (1.5-8.5); NEUTROPHILS % 45.9 % (36.0-66.0); PLATELET COUNT, AUTOMATED 270 10^3/uL (150-450); WHITE BLOOD COUNT 4.1 10^3/uL (4.0-10.0)
== END ==
LOC: SKLAB2 10:08
DX: R74.9 Abnormal serum enzyme level, unspecified (principal)

== ENCOUNTER 2020-08-30 23:58 | Emergency (ER) | payer MEDICARE, OTHER ==
[2020-08-31 00:46] VITALS: BP 154/70
--- NOTE | 2020-08-31 00:56 | REPVR ---
PROCEDURE INFORMATION: Exam: CT Head Without Contrast Exam date and time: 08/31/2020 12:09 AM Age: 85 years old Clinical indication: Injury or trauma; Fall; Concussion/head injury; Consciousness not specified; Additional info: Fall and hit head on floor no thinners TECHNIQUE: Imaging protocol: Computed tomography of the head without contrast. Radiation optimization: All CT scans at this facility use at least one of these dose optimization techniques: automated exposure control; mA and/or kV adjustment per patient size (includes targeted exams where dose is matched to clinical indication); or iterative reconstruction. COMPARISON: No relevant prior studies available. FINDINGS: Brain: Severe anterior temporal lobe volume loss, correlate for Alzheimer's disease. No midline shift, mass, fluid collection, or evidence of acute hemorrhage. Cerebral ventricles: No ventriculomegaly. Bones/joints: Unremarkable. No acute fracture. Paranasal sinuses: Visualized sinuses are unremarkable. No fluid levels. Mastoid air cells: Visualized mastoid air cells are well aerated. Soft tissues: Right forehead hematoma. Right lateral scalp small hematoma. IMPRESSION: 1. No acute intracranial abnormality. 2. Right forehead hematoma. 3. Right lateral scalp small hematoma. Electronically signed by: Kt Fragoso On 08/31/2020 00:55:37 AM
--- NOTE | 2020-08-31 00:57 | REPVR ---
PROCEDURE INFORMATION: Exam: CT Cervical Spine Without Contrast Exam date and time: 08/31/2020 12:09 AM Age: 85 years old Clinical indication: Neck pain; Additional info: Fall and hit head on floor no thinners TECHNIQUE: Imaging protocol: Computed tomography images of the cervical spine without contrast. Radiation optimization: All CT scans at this facility use at least one of these dose optimization techniques: automated exposure control; mA and/or kV adjustment per patient size (includes targeted exams where dose is matched to clinical indication); or iterative reconstruction. COMPARISON: No relevant prior studies available. FINDINGS: Bones/joints: Maintained cervical vertebral body heights and lordosis with degenerative C4-T1 stepwise anterolisthesis. Discs/Spinal canal/Neural foramina: Multilevel moderate spinal and foraminal stenosis. Soft tissues: Unremarkable. Lungs: Scarring in the right lung apex. Vasculature: There is mild atherosclerotic calcification of the carotid arteries. There is mild atherosclerotic calcification of the carotid arteries. IMPRESSION: No acute findings. Electronically signed by: Kt Fragoso On 08/31/2020 00:57:12 AM
[2020-08-31] MEDS ORDERED: BOOSTRIX/ADACEL VACCINE (DIPHTH/PERTUSS/ACELL/TETANUS) 0.5ML SYR IM ONE (01:15)
[2020-08-31] MEDS ORDERED: DERMABOND TOPICAL SKIN ADHESIVE TOP ONE (01:15)
== END 2020-08-31 01:42 | disposition home or self-care (01) ==
LOC: M ED 23:58
DX: S01.81XA Laceration without foreign body of other part of head, initial encounter (principal); W19.XXXA Unspecified fall, initial encounter; Y92.129 Unspecified place in nursing home as the place of occurrence of the external cause; Y93.9 Activity, unspecified; Y99.9 Unspecified external cause status

== ENCOUNTER → 2020-09-12 | Outpatient (REF) | payer MEDICARE, OTHER | LOC: SKLAB2 08:00 | DX: Z20.828 Contact with and (suspected) exposure to other viral communicable diseases (principal) ==

== ENCOUNTER → 2020-09-19 | Outpatient (REF) | payer MEDICARE, OTHER | LOC: SKLAB2 07:31 | DX: Z20.828 Contact with and (suspected) exposure to other viral communicable diseases (principal) ==

== ENCOUNTER → 2020-09-25 | Outpatient (REF) | payer MEDICARE, OTHER ==
[2020-09-25 10:04] LABS: BASO % 0.6 % (0.0-1.0); EOS # 0.1 10^3/uL (0.0-0.5); EOS % 2.7 % (0.0-3.0); HEMATOCRIT 36.9 % (36.0-47.0); HEMOGLOBIN 11.8 g/dl (12.0-15.5); LYMPH # 1.2 10^3/uL (1.5-5.0); LYMPH % 36.4 % (24.0-44.0); MEAN CORPUSCULAR VOLUME 96.9 fl (80.0-96.0); MONO # 0.7 10^3/uL (0.0-0.8); MONO % 20.1 % (0.0-5.0); NEUTROPHILS # 1.4 10^3/uL (1.5-8.5); NEUTROPHILS % 39.9 % (36.0-66.0); PLATELET COUNT, AUTOMATED 228 10^3/uL (150-450); RED BLOOD COUNT 3.81 10^6/uL (4.00-5.40); WHITE BLOOD COUNT 3.4 10^3/uL (4.0-10.0)
[2020-09-25 10:40] LABS: ALBUMIN 3.4 GM/DL (3.2-5.2); ALT/SGPT 13 U/L (12-78); BILIRUBIN,DIRECT < 0.1 MG/DL (0.0-0.2); BILIRUBIN,TOTAL 0.3 MG/DL (0.2-1.0); CPK CREATINE PHOSPHOKINASE 62 U/L (26-192); FERRITIN 77 NG/ML (8-252); TOTAL PROTEIN 6.9 GM/DL (6.4-8.2)
[2020-09-25 11:47] LABS: FOLATE 11.5 NG/ML (>5.4); VITAMIN B12 LEVEL 470 PG/ML (247-911)
== END ==
LOC: SKLAB2 08:00
DX: D64.9 Anemia, unspecified (principal); F03.90 Unspecified dementia, unspecified severity, without behavioral disturbance, psychotic disturbance, mood disturbance, and anxiety

== ENCOUNTER → 2020-09-26 | Outpatient (REF) | payer MEDICARE, OTHER | LOC: SKLAB2 11:30 | DX: Z20.828 Contact with and (suspected) exposure to other viral communicable diseases (principal) ==

== ENCOUNTER → 2020-10-03 | Outpatient (REF) | payer MEDICARE, OTHER | LOC: SKLAB2 07:54 | DX: Z20.828 Contact with and (suspected) exposure to other viral communicable diseases (principal) ==

== ENCOUNTER → 2020-10-10 | Outpatient (REF) | payer MEDICARE, OTHER | LOC: SKLAB2 10:21 | DX: Z20.828 Contact with and (suspected) exposure to other viral communicable diseases (principal) ==

== ENCOUNTER → 2020-10-17 | Outpatient (REF) | payer MEDICARE, OTHER | LOC: SKLAB7 13:08 | PROVIDERS: ATTEND Internal Medicine | DX: Z11.52 Encounter for screening for COVID-19 (principal) ==

== ENCOUNTER → 2020-10-23 | Outpatient (REF) | payer MEDICARE, OTHER ==
[~2020-10-23] MED LIST changes: -QUET1TAB7 PO; +QUET25TA3 PO
[2020-10-23 09:32] LABS: BASO % 0.6 % (0.0-1.0); EOS # 0.1 10^3/uL (0.0-0.5); EOS % 1.9 % (0.0-3.0); HEMATOCRIT 37.9 % (36.0-47.0); LYMPH % 31.9 % (24.0-44.0); MEAN CORPUSCULAR HEMOGLOBIN 30.3 pg (27.0-33.0); MEAN CORPUSCULAR HGB CONC 31.7 g/dl (32.0-36.5); MEAN CORPUSCULAR VOLUME 95.7 fl (80.0-96.0); MONO # 0.6 10^3/uL (0.0-0.8); MONO % 19.4 % (0.0-5.0); NEUTROPHILS # 1.4 10^3/uL (1.5-8.5); NEUTROPHILS % 45.6 % (36.0-66.0); PLATELET COUNT, AUTOMATED 223 10^3/uL (150-450); RED BLOOD COUNT 3.96 10^6/uL (4.00-5.40); WHITE BLOOD COUNT 3.1 10^3/uL (4.0-10.0)
[2020-10-23 10:35] LABS: ALBUMIN 3.5 GM/DL (3.2-5.2); BILIRUBIN,DIRECT 0.1 MG/DL (0.0-0.2); BILIRUBIN,TOTAL 0.4 MG/DL (0.2-1.0); TOTAL PROTEIN 7.2 GM/DL (6.4-8.2)
== END ==
LOC: SKLAB7 07:00
DX: D64.9 Anemia, unspecified (principal); E05.90 Thyrotoxicosis, unspecified without thyrotoxic crisis or storm

== ENCOUNTER → 2020-10-24 | Outpatient (REF) | payer MEDICARE, OTHER ==
[~2020-10-24] MED LIST changes: +QUET1TAB7 PO; -QUET25TA3 PO
== END ==
LOC: SKLAB7 10:40
PROVIDERS: ATTEND Internal Medicine
DX: Z11.52 Encounter for screening for COVID-19 (principal)

== ENCOUNTER → 2020-10-31 | Outpatient (REF) | payer MEDICARE, OTHER ==
[~2020-10-31] MED LIST changes: -QUET1TAB7 PO; +QUET25TA3 PO
== END ==
LOC: SKLAB7 14:06
PROVIDERS: ATTEND Internal Medicine
DX: Z20.822 Contact with and (suspected) exposure to COVID-19 (principal)

== ENCOUNTER → 2020-11-07 | Outpatient (REF) | payer MEDICARE, OTHER | LOC: SKLAB7 09:57 | PROVIDERS: ATTEND Internal Medicine | DX: Z20.822 Contact with and (suspected) exposure to COVID-19 (principal) ==

== ENCOUNTER → 2020-11-14 | Outpatient (REF) | payer MEDICARE, OTHER ==
[~2020-11-14] MED LIST changes: +QUET1TAB7 PO; -QUET25TA3 PO
== END ==
LOC: SKLAB7 14:56
PROVIDERS: ATTEND Internal Medicine
DX: Z20.822 Contact with and (suspected) exposure to COVID-19 (principal)

== ENCOUNTER → 2020-11-21 | Outpatient (REF) | payer MEDICARE, OTHER ==
[~2020-11-21] MED LIST changes: -QUET1TAB7 PO; +QUET25TA3 PO
== END ==
LOC: SKLAB7 11:36
PROVIDERS: ATTEND Internal Medicine
DX: Z20.822 Contact with and (suspected) exposure to COVID-19 (principal)

== ENCOUNTER → 2020-11-28 | Outpatient (REF) | payer MEDICARE, OTHER | LOC: SKLAB7 07:11 | PROVIDERS: ATTEND Internal Medicine | DX: Z20.822 Contact with and (suspected) exposure to COVID-19 (principal) ==

== ENCOUNTER → 2020-12-05 | Outpatient (REF) | payer MEDICARE, OTHER | LOC: SKLAB7 14:19 | PROVIDERS: ATTEND Internal Medicine | DX: Z20.822 Contact with and (suspected) exposure to COVID-19 (principal) ==

== ENCOUNTER → 2020-12-19 | Outpatient (REF) | payer MEDICARE, OTHER | LOC: SKLAB7 10:07 | PROVIDERS: ATTEND Internal Medicine | DX: Z20.822 Contact with and (suspected) exposure to COVID-19 (principal) ==

== ENCOUNTER → 2020-12-26 | Outpatient (REF) | payer MEDICARE, OTHER | LOC: SKLAB7 12:24 | PROVIDERS: ATTEND Internal Medicine | DX: Z20.822 Contact with and (suspected) exposure to COVID-19 (principal) ==

== ENCOUNTER → 2021-01-11 | Outpatient (REF) | payer MEDICARE, OTHER | LOC: SKLAB7 07:00 | PROVIDERS: ATTEND Internal Medicine | DX: Z20.822 Contact with and (suspected) exposure to COVID-19 (principal) ==

== ENCOUNTER → 2021-03-27 | Outpatient (REF) | payer MEDICARE, OTHER ==
[2021-03-27 11:00] LABS: FREE T4 0.99 NG/DL (0.76-1.46); THYROID STIMULATING HORMONE 4.36 uIU/ML (0.358-3.740)
== END ==
LOC: SKLAB7 03-26 10:07
DX: R94.6 Abnormal results of thyroid function studies (principal)

== ENCOUNTER → 2021-04-11 | Outpatient (REF) | payer MEDICARE, OTHER ==
[2021-04-11 10:19] LABS: BLOOD UREA NITROGEN 20 MG/DL (7-18); CALCIUM LEVEL 9.2 MG/DL (8.8-10.2); CARBON DIOXIDE LEVEL 29 MEQ/L (21-32); CHLORIDE LEVEL 108 MEQ/L (98-107); CREATININE FOR GFR 0.68 MG/DL (0.55-1.30); GLOMERULAR FILTRATION RATE > 60.0 (>32); GLUCOSE, FASTING 78 MG/DL (70-100); POTASSIUM SERUM 4.1 MEQ/L (3.5-5.1); SODIUM LEVEL 143 MEQ/L (136-145)
== END ==
LOC: SKLAB7 07:00
DX: I50.9 Heart failure, unspecified (principal)

== ENCOUNTER → 2021-07-30 | Outpatient (REF) | payer MEDICARE, OTHER ==
[~2021-07-30] MED LIST changes: +QUET1TAB17 PO; -QUET25TA3 PO
== END ==
LOC: SKLAB7 11:15
PROVIDERS: ATTEND Internal Medicine
DX: Z20.822 Contact with and (suspected) exposure to COVID-19 (principal)

== ENCOUNTER → 2021-08-01 | Outpatient (REF) | payer MEDICARE, OTHER ==
[2021-08-01 12:46] LABS: BLOOD UREA NITROGEN 21 MG/DL (7-18); CALCIUM LEVEL 8.7 MG/DL (8.8-10.2); CARBON DIOXIDE LEVEL 28 MEQ/L (21-32); CHLORIDE LEVEL 105 MEQ/L (98-107); GLOMERULAR FILTRATION RATE > 60.0 (>32); GLUCOSE, FASTING 102 MG/DL (70-100); POTASSIUM SERUM 3.8 MEQ/L (3.5-5.1); SODIUM LEVEL 138 MEQ/L (136-145)
== END ==
LOC: SKLAB7 05:59
PROVIDERS: ATTEND Internal Medicine
DX: I50.9 Heart failure, unspecified (principal); Z20.822 Contact with and (suspected) exposure to COVID-19
CPT/HCPCS: 36415; 80048; U0002

== ENCOUNTER → 2021-08-05 | Outpatient (REF) | payer MEDICARE, OTHER | LOC: SKLAB7 09:00 | PROVIDERS: ATTEND Internal Medicine | DX: Z20.822 Contact with and (suspected) exposure to COVID-19 (principal) ==

== ENCOUNTER → 2021-08-08 | Outpatient (REF) | payer MEDICARE, OTHER | LOC: SKLAB7 07:22 | PROVIDERS: ATTEND Internal Medicine | DX: Z20.822 Contact with and (suspected) exposure to COVID-19 (principal) ==

== ENCOUNTER → 2021-08-12 | Outpatient (REF) | payer MEDICARE, OTHER | LOC: SKLAB7 08:08 | PROVIDERS: ATTEND Internal Medicine | DX: Z20.822 Contact with and (suspected) exposure to COVID-19 (principal) ==

== ENCOUNTER → 2021-08-15 | Outpatient (REF) | payer MEDICARE, OTHER | LOC: SKLAB7 05:59 | PROVIDERS: ATTEND Internal Medicine | DX: Z20.822 Contact with and (suspected) exposure to COVID-19 (principal) ==

== ENCOUNTER → 2021-08-21 | Outpatient (REF) | payer MEDICARE, OTHER | LOC: SKLAB7 05:26 | PROVIDERS: ATTEND Internal Medicine | DX: Z20.822 Contact with and (suspected) exposure to COVID-19 (principal) ==

== ENCOUNTER → 2021-08-28 | Outpatient (REF) | payer MEDICARE, OTHER | LOC: SKLAB7 10:40 | PROVIDERS: ATTEND Internal Medicine | DX: Z20.822 Contact with and (suspected) exposure to COVID-19 (principal) ==

== ENCOUNTER → 2021-09-18 | Outpatient (REF) | payer MEDICARE, OTHER | LOC: SKLAB7 13:53 | PROVIDERS: ATTEND Internal Medicine | DX: Z20.822 Contact with and (suspected) exposure to COVID-19 (principal) ==

== ENCOUNTER → 2021-09-25 | Outpatient (REF) | payer MEDICARE, OTHER | LOC: SKLAB7 14:51 | PROVIDERS: ATTEND Internal Medicine | DX: Z20.822 Contact with and (suspected) exposure to COVID-19 (principal) ==

== ENCOUNTER → 2021-10-02 | Outpatient (REF) | payer MEDICARE, OTHER | LOC: SKLAB7 07:00 | PROVIDERS: ATTEND Internal Medicine | DX: Z20.822 Contact with and (suspected) exposure to COVID-19 (principal) ==

== ENCOUNTER → 2021-10-09 | Outpatient (REF) | payer MEDICARE, OTHER | LOC: SKLAB7 06:56 | PROVIDERS: ATTEND Internal Medicine | DX: Z20.822 Contact with and (suspected) exposure to COVID-19 (principal) ==

== ENCOUNTER → 2021-10-16 | Outpatient (REF) | payer MEDICARE, OTHER | LOC: SKLAB7 09:32 | PROVIDERS: ATTEND Internal Medicine | DX: Z20.822 Contact with and (suspected) exposure to COVID-19 (principal) ==

== ENCOUNTER → 2021-10-29 | Outpatient (CLI) | payer MEDICARE, OTHER ==
[~2021-10-29] MED LIST changes: +POTA-151 PO; -POTA20TA6 PO
== END ==
LOC: M RAD 11:15
PROVIDERS: ATTEND Nurse Practitioner Family
DX: S80.11XA Contusion of right lower leg, initial encounter (principal); M79.604 Pain in right leg; X58.XXXA Exposure to other specified factors, initial encounter; Y92.9 Unspecified place or not applicable; Y93.9 Activity, unspecified; Y99.9 Unspecified external cause status

== ENCOUNTER → 2021-10-29 | Outpatient (REF) | payer MEDICARE, OTHER ==
[2021-10-29 13:07] LABS: HEMATOCRIT 39.1 % (36.0-47.0); HEMOGLOBIN 12.8 g/dl (12.0-15.5); MEAN CORPUSCULAR HEMOGLOBIN 31.9 pg (27.0-33.0); MEAN CORPUSCULAR HGB CONC 32.7 g/dl (32.0-36.5); MEAN CORPUSCULAR VOLUME 97.5 fl (80.0-96.0); PLATELET COUNT, AUTOMATED 242 10^3/uL (150-450); RED BLOOD COUNT 4.01 10^6/uL (4.00-5.40); WHITE BLOOD COUNT 5.4 10^3/uL (4.0-10.0)
[2021-10-29 13:17] LABS: PROTHROMBIN TIME 13.6 SECONDS (12.7-14.5)
[2021-10-29 13:18] LABS: PARTIAL THROMBOPLASTIN TIME 38.6 SECONDS (25.9-37.0)
[2021-10-29 13:41] LABS: BLOOD UREA NITROGEN 25 MG/DL (7-18); CALCIUM LEVEL 9.7 MG/DL (8.8-10.2); CARBON DIOXIDE LEVEL 30 MEQ/L (21-32); CHLORIDE LEVEL 103 MEQ/L (98-107); CREATININE FOR GFR 0.73 MG/DL (0.55-1.30); GLOMERULAR FILTRATION RATE > 60.0 (>32); GLUCOSE, FASTING 105 MG/DL (70-100); POTASSIUM SERUM 4.4 MEQ/L (3.5-5.1); SODIUM LEVEL 138 MEQ/L (136-145)
== END ==
LOC: SKLAB7 11:27
PROVIDERS: ATTEND Internal Medicine
DX: T14.8XXA Other injury of unspecified body region, initial encounter (principal); R52 Pain, unspecified; Z79.899 Other long term (current) drug therapy

== ENCOUNTER → 2021-11-06 | Outpatient (REF) | payer MEDICARE, OTHER | LOC: SKLAB7 12:52 | PROVIDERS: ATTEND Neuromusculoskeletal Medicine & OMM | DX: L03.90 Cellulitis, unspecified (principal); R60.9 Edema, unspecified ==

== ENCOUNTER 2021-11-08 16:02 | Inpatient (IN) | payer MEDICARE, OTHER ==
[2021-11-08 16:30] VITALS: BP 154/72
[2021-11-08] MEDS ORDERED: QUET1TAB17 PO (18:07)
[2021-11-08] MEDS ORDERED: ENSU1LIQ36 PO (18:07)
[2021-11-08] MEDS ORDERED: ASPI81TA26 PO (18:07)
[2021-11-08] MEDS ORDERED: METO25TA4 PO (18:07)
[2021-11-08] MEDS ORDERED: FURO20TA2 PO (18:07)
[2021-11-08] MEDS ORDERED: CEPH500T PO (18:07)
[2021-11-08] MEDS ORDERED: DOXY-350 PO (18:21)
== END 2021-11-08 20:40 | DRG 603 ==
LOC: M MSPAV 16:09
PROVIDERS: ADMIT Internal Medicine Nephrology; ATTEND Internal Medicine
DX: L03.115 Cellulitis of right lower limb (principal); F02.81 Dementia in other diseases classified elsewhere, unspecified severity, with behavioral disturbance; G30.9 Alzheimer's disease, unspecified; Z79.82 Long term (current) use of aspirin; Z79.899 Other long term (current) drug therapy

== ENCOUNTER 2021-11-08 20:42 | Outpatient (CLI) | payer MEDICARE, OTHER ==
[~2021-11-08] VITALS: Ht 162.6 cm; Wt 63.0 kg
[~2021-11-08 20:42] MED LIST changes: +ASPI81TA26 PO; +CEPH500T PO; +DALBAVANCIN 1,500 MG in D5W 250 ML IV ONE; +DOXY-350 PO; +ENSU1LIQ36 PO; +FURO20TA2 PO
[2021-11-08 20:58] VITALS: BP 176/84
== END 2021-11-08 21:22 ==
LOC: M OPCLI4PV 20:42 → M MSPAV 20:44 → M OPCLI4PV 21:22
PROVIDERS: ATTEND Emergency Medicine
DX: L03.90 Cellulitis, unspecified (principal)

== ENCOUNTER → 2021-11-14 | Outpatient (REF) | payer MEDICARE, OTHER ==
[~2021-11-14] MED LIST changes: -DALBAVANCIN 1,500 MG in D5W 250 ML IV ONE
[2021-11-14 11:31] LABS: BLOOD UREA NITROGEN 29 MG/DL (7-18); CARBON DIOXIDE LEVEL 27 MEQ/L (21-32); CHLORIDE LEVEL 106 MEQ/L (98-107); CREATININE FOR GFR 0.75 MG/DL (0.55-1.30); GLOMERULAR FILTRATION RATE > 60.0 (>32); GLUCOSE, FASTING 97 MG/DL (70-100); POTASSIUM SERUM 3.7 MEQ/L (3.5-5.1); SODIUM LEVEL 141 MEQ/L (136-145)
== END ==
LOC: SKLAB7 14:16
PROVIDERS: ATTEND Internal Medicine
DX: R60.9 Edema, unspecified (principal)

== ENCOUNTER → 2021-11-30 | Outpatient (REF) | LOC: SKLAB7 17:36 | PROVIDERS: ATTEND Internal Medicine | DX: R05.9 Cough, unspecified (principal); R09.81 Nasal congestion ==

== ENCOUNTER → 2022-02-12 | Outpatient (REF) | payer MEDICARE, OTHER ==
[2022-02-12 10:02] LABS: BLOOD UREA NITROGEN 21 MG/DL (7-18); CALCIUM LEVEL 9.6 MG/DL (8.8-10.2); CARBON DIOXIDE LEVEL 28 MEQ/L (21-32); CHLORIDE LEVEL 105 MEQ/L (98-107); CREATININE FOR GFR 0.68 MG/DL (0.55-1.30); GLOMERULAR FILTRATION RATE > 60.0 (>32); GLUCOSE, FASTING 102 MG/DL (70-100); SODIUM LEVEL 141 MEQ/L (136-145)
== END ==
LOC: SKLAB7 07:00
PROVIDERS: ATTEND Internal Medicine
DX: R60.9 Edema, unspecified (principal)

== ENCOUNTER → 2022-05-01 | Outpatient (REF) | payer MEDICARE, OTHER ==
[2022-05-01 10:02] LABS: BLOOD UREA NITROGEN 25 MG/DL (7-18); CARBON DIOXIDE LEVEL 29 MEQ/L (21-32); CHLORIDE LEVEL 106 MEQ/L (98-107); CREATININE FOR GFR 0.81 MG/DL (0.55-1.30); GLOMERULAR FILTRATION RATE > 60.0 (>32); GLUCOSE, FASTING 113 MG/DL (70-100); POTASSIUM SERUM 3.8 MEQ/L (3.5-5.1); SODIUM LEVEL 141 MEQ/L (136-145)
== END ==
LOC: SKLAB7 09:21
PROVIDERS: ATTEND Nurse Practitioner Family
DX: I50.9 Heart failure, unspecified (principal)

== ENCOUNTER → 2022-05-04 | Outpatient (CLI) | payer MEDICARE, OTHER | LOC: SKLAB7 03:50 | PROVIDERS: ATTEND Internal Medicine | DX: Z20.828 Contact with and (suspected) exposure to other viral communicable diseases (principal); Z11.59 Encounter for screening for other viral diseases ==

== ENCOUNTER → 2022-05-05 | Outpatient (REF) | payer MEDICARE, OTHER | LOC: SKLAB7 10:02 | PROVIDERS: ATTEND Nurse Practitioner Family | DX: Z20.822 Contact with and (suspected) exposure to COVID-19 (principal) ==

== ENCOUNTER → 2022-08-28 | Outpatient (REF) | payer MEDICARE, OTHER ==
[~2022-08-28] MED LIST changes: -DOXY-350 PO; +DOXY-444 PO; -MAGN400O50 PO; +SFHMOMUDC PO
[2022-08-28 10:42] LABS: BLOOD UREA NITROGEN 21 MG/DL (9-23); CALCIUM LEVEL 9.8 MG/DL (8.3-10.6); CARBON DIOXIDE LEVEL 28 MMOL/L (20-31); CHLORIDE LEVEL 104 MMOL/L (98-107); GLOMERULAR FILTRATION RATE > 60.0 (>32); GLUCOSE, FASTING 99 MG/DL (74-106); POTASSIUM SERUM 3.7 MMOL/L (3.5-5.1); SODIUM LEVEL 142 MMOL/L (136-145)
== END ==
LOC: SKLAB7 11:36
PROVIDERS: ATTEND Nurse Practitioner Family
DX: I50.9 Heart failure, unspecified (principal)

== ENCOUNTER → 2022-11-27 | Outpatient (REF) | payer MEDICARE, OTHER ==
[2022-11-27 10:47] LABS: BLOOD UREA NITROGEN 18 MG/DL (9-23); CALCIUM LEVEL 8.9 MG/DL (8.3-10.6); CARBON DIOXIDE LEVEL 26 MMOL/L (20-31); CHLORIDE LEVEL 104 MMOL/L (98-107); CREATININE FOR GFR 0.68 MG/DL (0.55-1.30); GLOMERULAR FILTRATION RATE > 60.0 (>32); GLUCOSE, FASTING 120 MG/DL (74-106); POTASSIUM SERUM 3.4 MMOL/L (3.5-5.1); SODIUM LEVEL 139 MMOL/L (136-145)
== END ==
LOC: SKLAB7 11:31
PROVIDERS: ATTEND Internal Medicine
DX: I50.9 Heart failure, unspecified (principal)

== ENCOUNTER → 2023-01-15 | Outpatient (REF) | payer MEDICARE, OTHER ==
[~2023-01-15] MED LIST changes: -ASPE16CR TOP; +LIDO76.52 TOP
[2023-01-15 13:50] LABS: APPEARANCE, URINE HAZY (CLEAR); BACTERIA, URINE AUTO 1+ (NEGATIVE); BILIRUBIN, URINE AUTO NEGATIVE (NEGATIVE); BLOOD, URINE BLOOD NEGATIVE (NEGATIVE); COLOR, URINE YELLOW (YELLOW); GLUCOSE, URINE (UA) AUTO NEGATIVE (NEGATIVE); KETONE, URINE AUTO NEGATIVE (NEGATIVE); LEUKOCYTE ESTERASE, URINE AUTO 3+ (NEGATIVE); MUCUS, URINE SMALL (NEGATIVE); NITRITE, URINE AUTO POSITIVE (NEGATIVE); PROTEIN, URINE AUTO NEGATIVE (NEGATIVE); RBC, URINE AUTO 3 /HPF (0-3); SPECIFIC GRAVITY URINE AUTO 1.009 (1.002-1.035); SQUAMOUS EPITHELIAL CELL UR AU 0 /HPF (0-6); UROBILINOGEN, URINE AUTO 0.2 mg/dL (0.0-2.0); WBC, URINE AUTO 30 /HPF (0-3)
== END ==
LOC: SKLAB7 13:08
PROVIDERS: ATTEND Internal Medicine
DX: R82.998 Other abnormal findings in urine (principal)

== ENCOUNTER → 2023-02-26 | Outpatient (REF) | payer MEDICARE, OTHER ==
[2023-02-26 09:21] LABS: BLOOD UREA NITROGEN 18 MG/DL (9-23); CALCIUM LEVEL 8.6 MG/DL (8.3-10.6); CARBON DIOXIDE LEVEL 27 MMOL/L (20-31); CHLORIDE LEVEL 106 MMOL/L (98-107); CREATININE FOR GFR 0.76 MG/DL (0.55-1.30); GLOMERULAR FILTRATION RATE > 60.0 (>32); GLUCOSE, FASTING 119 MG/DL (74-106); POTASSIUM SERUM 3.8 MMOL/L (3.5-5.1); SODIUM LEVEL 141 MMOL/L (136-145)
== END ==
LOC: SKLAB7 14:02
PROVIDERS: ATTEND Internal Medicine
DX: I50.9 Heart failure, unspecified (principal)

== ENCOUNTER → 2023-05-28 | Outpatient (REF) | payer MEDICARE, OTHER ==
[2023-05-28 07:21] LABS: BLOOD UREA NITROGEN 24 MG/DL (9-23); CALCIUM LEVEL 8.9 MG/DL (8.3-10.6); CARBON DIOXIDE LEVEL 25 MMOL/L (20-31); CHLORIDE LEVEL 108 MMOL/L (98-107); CREATININE FOR GFR 0.78 MG/DL (0.55-1.30); GLOMERULAR FILTRATION RATE > 60.0 (>32); GLUCOSE, FASTING 88 MG/DL (74-106); POTASSIUM SERUM 4.6 MMOL/L (3.5-5.1); SODIUM LEVEL 143 MMOL/L (136-145)
== END ==
LOC: SKLAB7 07:00
PROVIDERS: ATTEND Internal Medicine
DX: I50.9 Heart failure, unspecified (principal)

== ENCOUNTER 2023-07-25 12:04 | Inpatient (IN) | payer MEDICARE, OTHER, MEDICAID ==
[2023-07-25] VITALS (13 sets, daily range): BP systolic 106–163; BP diastolic 56–82; TEMP 98.1–98.8; O2SAT 94–99
[~2023-07-25] VITALS: Ht 162.6 cm; Wt 88.0 kg
[~2023-07-25 12:04] MED LIST changes: -ASPI81CH33 PO; -ATIV1TAB10 PO; -FERR32TA PO; -MIRT-10 PO
[2023-07-25] MEDS ORDERED: MED REC IN PROGRESS XX SCH (13:00)
[2023-07-25] MEDS ORDERED: ACET1TAB55 PO (13:23)
[2023-07-25] MEDS ORDERED: ATIV1TAB10 PO (13:23)
[2023-07-25] MEDS ORDERED: MIRT-10 PO (13:23)
[2023-07-25] MEDS ORDERED: ASPI81CH33 PO (13:23)
[2023-07-25 13:30] LABS: IRON (FE) 19 UG/DL (50-170); PERCENT SATURATION 4.9 % (13.2-45.0); TOTAL IRON BINDING CAPACITY 385 UG/DL (250-425)
[2023-07-25] MEDS ORDERED: HOME MED LIST COMPLETE! XX SCH (13:30)
[2023-07-25 13:32] LABS: FERRITIN 5.8 NG/ML (7.3-270.7)
[2023-07-25 13:33] LABS: FOLATE 11.83 NG/ML (>5.4); VITAMIN B12 LEVEL 475 PG/ML (211-911)
[2023-07-25] MEDS ORDERED: FUROSEMIDE 20MG/2ML VIAL IV ONE (15:00)
[2023-07-25] MEDS ORDERED: FUROSEMIDE 40MG/4ML VIAL IV ONE (15:30)
[2023-07-25 15:48] LABS: ALKALINE PHOSPHATASE 101 U/L (46-116); ALT/SGPT 29 U/L (7.0-40); AST/SGOT 33 U/L (<34); BILIRUBIN,DIRECT < 0.1 MG/DL (<0.4); BILIRUBIN,TOTAL 0.2 MG/DL (0.3-1.2); TOTAL PROTEIN 6.3 G/DL (5.7-8.2)
[2023-07-25] MEDS: ACETAMINOPHEN 500 MG TAB PO SCH ×2 (16:47→20:31)
[2023-07-25] MEDS: METOPROLOL TART 25 MG TABLET PO SCH (20:21)
[2023-07-25] MEDS: LORazepam 0.5 MG TAB PO SCH (20:30)
[2023-07-25] MEDS: QUEtiapine FUMARATE 25 MG TAB PO SCH (20:30)
[2023-07-25] MEDS: MIRTAZAPINE 15 MG TAB PO SCH (20:30)
[2023-07-25] MEDS: SENOKOT S TAB PO SCH (20:31)
[2023-07-25] MEDS ORDERED: MIRTAZAPINE 7.5MG PER 1/2 TABLET PO SCH (21:00)
[2023-07-25] MEDS ORDERED: QUEtiapine FUMARATE 12.5 MG HALF-TAB PO ONE (22:20)
[2023-07-26] VITALS (8 sets, daily range): BP systolic 96–139; BP diastolic 50–78; TEMP 97.5–98.6; O2SAT 92–99
[2023-07-26 00:20] LABS: HEMATOCRIT 21.7 % (36.0-47.0)
[2023-07-26 00:22] LABS: HEMOGLOBIN 6.9 g/dl (12.0-15.5)
[2023-07-26] MEDS ORDERED: FUROSEMIDE 40MG/4ML VIAL IV ONE (06:25)
[2023-07-26 06:35] LABS: HEMATOCRIT 28.2 % (36.0-47.0)
[2023-07-26 06:38] LABS: HEMOGLOBIN 9.1 g/dl (12.0-15.5)
[2023-07-26] MEDS ORDERED: FERRIC CARBOXYMALTOSE INJ 750 MG, VIAL MATE ADAPTER 1 EACH in NS 250 ML IV ONE (08:00)
[2023-07-26] MEDS: SENOKOT S TAB PO SCH ×2 (08:27→22:09)
[2023-07-26] MEDS: ACETAMINOPHEN 500 MG TAB PO SCH ×3 (08:27→22:09)
[2023-07-26] MEDS: METOPROLOL TART 25 MG TABLET PO SCH ×2 (08:27→22:08)
[2023-07-26] MEDS: LORazepam 0.5 MG TAB PO SCH ×2 (08:27→22:09)
[2023-07-26] MEDS: ASPIRIN 81MG CHEW TABLET PO SCH (08:27)
[2023-07-26 14:19] LABS: BASO % 0.3 % (0.0-1.0); EOS # 0.1 10^3/uL (0.0-0.5); HEMATOCRIT 26.9 % (36.0-47.0); HEMOGLOBIN 8.6 g/dl (12.0-15.5); LYMPH # 0.9 10^3/uL (1.5-5.0); LYMPH % 13.5 % (24.0-44.0); MEAN CORPUSCULAR HEMOGLOBIN 26.1 pg (27.0-33.0); MEAN CORPUSCULAR VOLUME 81.8 fl (80.0-96.0); MONO % 22.6 % (2.0-8.0); NEUTROPHILS # 4.2 10^3/uL (1.5-8.5); NEUTROPHILS % 60.6 % (36.0-66.0); PLATELET COUNT, AUTOMATED 313 10^3/uL (150-450); RED BLOOD COUNT 3.29 10^6/uL (4.00-5.40)
[2023-07-26] MEDS ORDERED: LORazepam 0.5 MG TAB PO ONE (14:30)
[2023-07-26 14:43] LABS: CALCIUM LEVEL 8.2 MG/DL (8.3-10.6); CREATININE FOR GFR 0.99 MG/DL (0.55-1.30); GLOMERULAR FILTRATION RATE 56.2 (>32); POTASSIUM SERUM 3.8 MMOL/L (3.5-5.1)
[2023-07-26 14:58] LABS: MONO # 1.6 10^3/uL (0.0-0.8)
[2023-07-26] MEDS: MIRTAZAPINE 15 MG TAB PO SCH (22:07)
[2023-07-26] MEDS: QUEtiapine FUMARATE 25 MG TAB PO SCH (22:09)
[2023-07-27] MEDS ORDERED: QUEtiapine FUMARATE 12.5 MG HALF-TAB PO ONE
[2023-07-27 06:08] LABS: BASO % 0.3 % (0.0-1.0); EOS # 0.2 10^3/uL (0.0-0.5); EOS % 2.4 % (0.0-3.0); HEMATOCRIT 26.1 % (36.0-47.0); HEMOGLOBIN 8.2 g/dl (12.0-15.5); MEAN CORPUSCULAR HGB CONC 31.4 g/dl (32.0-36.5); MEAN CORPUSCULAR VOLUME 82.9 fl (80.0-96.0); MONO % 32.5 % (2.0-8.0); NEUTROPHILS # 3.4 10^3/uL (1.5-8.5); NEUTROPHILS % 49.2 % (36.0-66.0); PLATELET COUNT, AUTOMATED 277 10^3/uL (150-450); RED BLOOD COUNT 3.15 10^6/uL (4.00-5.40)
[2023-07-27 06:18] LABS: BLOOD UREA NITROGEN 22 MG/DL (9-23); CARBON DIOXIDE LEVEL 23 MMOL/L (20-31); CHLORIDE LEVEL 106 MMOL/L (98-107); CREATININE FOR GFR 0.82 MG/DL (0.55-1.30); GLOMERULAR FILTRATION RATE > 60.0 (>32); GLUCOSE, FASTING 84 MG/DL (74-106); POTASSIUM SERUM 3.8 MMOL/L (3.5-5.1); SODIUM LEVEL 139 MMOL/L (136-145)
[2023-07-27] MEDS ORDERED: FERR32TA PO (06:36)
[2023-07-27 06:45] LABS: MONO # 2.3 10^3/uL (0.0-0.8)
[2023-07-27] MEDS ORDERED: FUROSEMIDE 40MG/4ML VIAL IV SCH (09:00)
[2023-07-27] MEDS ORDERED: FERROUS GLUCONATE 324 MG TAB PO SCH (09:00)
[2023-07-27] MEDS: ASPIRIN 81MG CHEW TABLET PO SCH (10:35)
[2023-07-27] MEDS: LORazepam 0.5 MG TAB PO SCH (10:35)
[2023-07-27] MEDS: SENOKOT S TAB PO SCH (10:36)
[2023-07-27] MEDS: ACETAMINOPHEN 500 MG TAB PO SCH (10:36)
[2023-07-27 10:39] VITALS: BP 117/71
[2023-07-27] MEDS: METOPROLOL TART 25 MG TABLET PO SCH (10:39)
[2023-07-27 10:50] VITALS: BP 117/71; TEMP 97.3
== END 2023-07-27 11:36 | DRG 811 ==
LOC: M ED 12:04 → EDBD 12:04 → M ED INP 13:43 → ENRESERV 14:24 → M MSPAV 16:07
PROVIDERS: ADMIT Internal Medicine Nephrology; ATTEND Internal Medicine Nephrology
PROC: 30233N1 Transfusion of Nonautologous Red Blood Cells into Peripheral Vein, Percutaneous Approach (ICD-10-PCS; principal; 2023-07-25)
DX: D50.9 Iron deficiency anemia, unspecified (principal); I50.33 Acute on chronic diastolic (congestive) heart failure; F02.811 Dementia in other diseases classified elsewhere, unspecified severity, with agitation; G30.9 Alzheimer's disease, unspecified; E02 Subclinical iodine-deficiency hypothyroidism; I11.0 Hypertensive heart disease with heart failure; I25.10 Atherosclerotic heart disease of native coronary artery without angina pectoris; K21.9 Gastro-esophageal reflux disease without esophagitis; K44.9 Diaphragmatic hernia without obstruction or gangrene; M10.9 Gout, unspecified; Z79.899 Other long term (current) drug therapy; Z79.82 Long term (current) use of aspirin

== ENCOUNTER → 2023-07-25 | Outpatient (REF) | payer MEDICARE, OTHER, MEDICAID ==
[~2023-07-25] MED LIST changes: +ASPI81CH33 PO; +ATIV1TAB10 PO; +FERR32TA PO; +MIRT-10 PO
[2023-07-25 10:15] LABS: MEAN CORPUSCULAR HEMOGLOBIN 22.8 pg (27.0-33.0); MEAN CORPUSCULAR HGB CONC 27.8 g/dl (32.0-36.5); PLATELET COUNT, AUTOMATED 364 10^3/uL (150-450); RED BLOOD COUNT 2.06 10^6/uL (4.00-5.40); WHITE BLOOD COUNT 7.1 10^3/uL (4.0-10.0)
[2023-07-25 10:16] LABS: HEMATOCRIT 16.9 % (36.0-47.0); HEMOGLOBIN 4.7 g/dl (12.0-15.5)
[2023-07-25 10:45] LABS: BLOOD UREA NITROGEN 33 MG/DL (9-23); CALCIUM LEVEL 8.7 MG/DL (8.3-10.6); CARBON DIOXIDE LEVEL 23 MMOL/L (20-31); CHLORIDE LEVEL 110 MMOL/L (98-107); CREATININE FOR GFR 0.92 MG/DL (0.55-1.30); GLOMERULAR FILTRATION RATE > 60.0 (>32); GLUCOSE, FASTING 92 MG/DL (74-106); SODIUM LEVEL 144 MMOL/L (136-145)
[2023-07-25 11:53] LABS: APPEARANCE, URINE CLEAR (CLEAR); BACTERIA, URINE AUTO 1+ (NEGATIVE); BILIRUBIN, URINE AUTO NEGATIVE (NEGATIVE); BLOOD, URINE BLOOD NEGATIVE (NEGATIVE); COLOR, URINE YELLOW (YELLOW); GLUCOSE, URINE (UA) AUTO NEGATIVE (NEGATIVE); KETONE, URINE AUTO NEGATIVE (NEGATIVE); LEUKOCYTE ESTERASE, URINE AUTO TRACE (NEGATIVE); NITRITE, URINE AUTO POSITIVE (NEGATIVE); PROTEIN, URINE AUTO NEGATIVE (NEGATIVE); RBC, URINE AUTO 0 /HPF (0-3); SPECIFIC GRAVITY URINE AUTO 1.015 (1.002-1.035); SQUAMOUS EPITHELIAL CELL UR AU 0 /HPF (0-6); UROBILINOGEN, URINE AUTO 0.2 mg/dL (0.0-2.0); WBC, URINE AUTO 4 /HPF (0-3)
== END ==
LOC: SKLAB7 05:16
PROVIDERS: ATTEND Internal Medicine
DX: R26.9 Unspecified abnormalities of gait and mobility (principal); Z79.899 Other long term (current) drug therapy

== ENCOUNTER → 2023-08-06 | Outpatient (REF) | payer MEDICARE, OTHER, MEDICAID ==
[~2023-08-06] MED LIST changes: +ASPI81CH33 PO; +ATIV1TAB10 PO; +FERR32TA PO; +MIRT-10 PO
[2023-08-06 09:57] LABS: HEMATOCRIT 31.9 % (36.0-47.0); HEMOGLOBIN 9.8 g/dl (12.0-15.5); MEAN CORPUSCULAR HEMOGLOBIN 27.7 pg (27.0-33.0); MEAN CORPUSCULAR HGB CONC 30.7 g/dl (32.0-36.5); MEAN CORPUSCULAR VOLUME 90.1 fl (80.0-96.0); PLATELET COUNT, AUTOMATED 262 10^3/uL (150-450); RED BLOOD COUNT 3.54 10^6/uL (4.00-5.40); WHITE BLOOD COUNT 6.7 10^3/uL (4.0-10.0)
[2023-08-06 19:13] LABS: APPEARANCE, URINE CLEAR (CLEAR); BACTERIA, URINE AUTO NEGATIVE (NEGATIVE); BILIRUBIN, URINE AUTO NEGATIVE (NEGATIVE); BLOOD, URINE BLOOD 2+ (NEGATIVE); COLOR, URINE YELLOW (YELLOW); GLUCOSE, URINE (UA) AUTO NEGATIVE (NEGATIVE); KETONE, URINE AUTO TRACE mg/dL (NEGATIVE); LEUKOCYTE ESTERASE, URINE AUTO NEGATIVE (NEGATIVE); NITRITE, URINE AUTO POSITIVE (NEGATIVE); PROTEIN, URINE AUTO 1+ mg/dL (NEGATIVE); RBC, URINE AUTO 3 /HPF (0-3); SPECIFIC GRAVITY URINE AUTO 1.012 (1.002-1.035); SQUAMOUS EPITHELIAL CELL UR AU 0 /HPF (0-6); UROBILINOGEN, URINE AUTO 0.2 mg/dL (0.0-2.0); WBC, URINE AUTO 2 /HPF (0-3)
== END ==
LOC: SKLAB7 08:37
PROVIDERS: ATTEND Internal Medicine
DX: R50.9 Fever, unspecified (principal); R11.0 Nausea